=== PATIENT | male | born 1950 | race African-American/Black ===

== ENCOUNTER 2019-07-06 10:13 | Outpatient (CLI) | payer MEDICARE, SELFPAY ==
[2019-07-06 11:14] LABS: Blood Urea Nitrogen 11 mg/dL (9-20); Calcium 8.8 mg/dL (8.4-10.2); Carbon Dioxide 28 mmol/L (22-30); Chloride 104 mmol/L (98-107); Estimated Glomerular Filt Rate > 60; Glucose 93 mg/dL (75-110); Potassium 4.3 mmol/L (3.4-5.0); Sodium 141 mmol/L (137-145)
== END 2019-07-06 10:14 | disposition home or self-care (01) ==
PROVIDERS: PCP Internal Medicine; Visit Provider Internal Medicine
DX: I10 Essential (primary) hypertension (principal)
CPT/HCPCS: 36415; 80048

== ENCOUNTER 2019-11-15 08:42 | Outpatient (CLI) | payer MEDICARE, SELFPAY ==
--- NOTE | 2019-11-15 08:53 | ECHO_ITS ---
Patient Info Name: Wilton Contreras Age: 69 years : 1950 Gender: Male Ht: 71 in Wt: 270 lbs BSA: 2.52 m2 HR: 73 bpm BP: 128 / 85 mmHg Technical Quality: Good Exam Date: 11/15/2019 8:56 AM Exam Location: [facility] Patient Status: Outpatient Admit Date: 11/15/2019 Staff Ordering Physician: Good Rivera DO Economic Adviser: Fay Vega RDCS Attending Provider: Good Rivera DO Referring Physician: Miguel COOK; Exam Type: CA echo doppler color flow Study Info Indications I50.22 - Chronic systolic (congestive) heart failure Complete two-dimensional, color flow and Doppler transthoracic echocardiogram is performed. Summary 1. Left ventricular chamber dimension is severely enlarged. 2. Left ventricular systolic function is severely reduced, estimated at 20-25%. 3. The left ventricular diastolic function is normal. 4. E/e' 8 is not elevated. 5. Global longitudinal strain is abnormal at -8.8%. 6. Right ventricular systolic function is reduced based on TAPSE 1.3 cm. 7. Linear artifact in right ventricle suggestive of catheter(s), pacemaker lead(s), or ICD lead(s). 8. Left atrial chamber dimension is severely enlarged. 9. Linear artifact in the right atrium suggestive of catheter(s), pacemaker lead(s), or ICD lead(s). 10. Right atrial chamber dimension is severely enlarged. 11. There is mild to moderate mitral valve regurgitation. 12. There is mild to moderate tricuspid valve regurgitation. 13. No pulmonary hypertension, estimated pulmonary arterial systolic pressure is 37 mmHg. 14. Dilated inferior vena cava with >50% collapse upon inspiration consistent with elevated right atrial pressure, 10 mmHg. Left Ventricle E/e' 8 is not elevated. Global longitudinal strain is abnormal at -8.8%. Left ventricular chamber dimension is severely enlarged. Left ventricular systolic function is severely reduced, estimated at 20-25%. The left ventricular diastolic function is normal. Right Ventricle Right ventricular systolic function is reduced based on TAPSE 1.3 cm. Linear artifact in right ventricle suggestive of catheter(s), pacemaker lead(s), or ICD lead(s). Right ventricular chamber dimension is not well visualized. Left Atria Left atrial chamber dimension is severely enlarged. Right Atria Linear artifact in the right atrium suggestive of catheter(s), pacemaker lead(s), or ICD lead(s). Right atrial chamber dimension is severely enlarged. Aortic Valve The aortic valve is trileaflet. There is no aortic valve stenosis. There is no aortic valve regurgitation. Pulmonic Valve There is no pulmonic regurgitation. Mitral Valve There is no mitral valve stenosis. There is mild to moderate mitral valve regurgitation. Tricuspid Valve There is mild to moderate tricuspid valve regurgitation. No pulmonary hypertension, estimated pulmonary arterial systolic pressure is 37 mmHg. Pericardium/Pleural There is no pericardial effusion. Inferior Vena Cava Dilated inferior vena cava with >50% collapse upon inspiration consistent with elevated right atrial pressure, 10 mmHg. Aorta The aortic root size at the sinus of Valsalva is normal. Left Ventricular Outflow Tract Name Value Normal LVOT 2D LVOT Diameter
== END 2019-11-15 08:43 | disposition home or self-care (01) ==
PROVIDERS: PCP Internal Medicine; Visit Provider Internal Medicine Cardiovascular Disease
DX: I50.22 Chronic systolic (congestive) heart failure (principal); I36.1 Nonrheumatic tricuspid (valve) insufficiency; I34.0 Nonrheumatic mitral (valve) insufficiency
CPT/HCPCS: 93306

== ENCOUNTER 2020-01-04 08:41 | Outpatient (CLI) | payer MEDICARE, SELFPAY ==
[2020-01-04 09:25] LABS: Alanine Aminotransferase 20 U/L (4-50); Albumin Level 3.8 g/dL (3.5-5.1); Alkaline Phosphatase 126 U/L (38-126); Anion Gap 6 mmol/L (8-16); Aspartate Amino Transferase 34 U/L (17-59); Bilirubin,Total 1.7 mg/dL (0.2-1.3); Blood Urea Nitrogen 11 mg/dL (9-20); Calcium 8.5 mg/dL (8.4-10.2); Carbon Dioxide 26 mmol/L (22-30); Chloride 106 mmol/L (98-107); Cholesterol 105 mg/dL (0-200); Estimated Glomerular Filt Rate > 60; Glucose 100 mg/dL (75-110); HDL Direct 40 mg/dL; Potassium 4.3 mmol/L (3.4-5.0); Sodium 138 mmol/L (137-145); Triglycerides 48 mg/dL (<150)
[2020-01-04 09:36] LABS: LDL Cholesterol Direct 56 mg/dL
[2020-01-04 09:56] LABS: Prostate Specific Antigen 3.6 ng/mL (< OR = 4.0)
== END 2020-01-04 08:42 | disposition home or self-care (01) ==
LOC: ANHLAB 08:42
PROVIDERS: PCP Internal Medicine; Visit Provider Nurse Practitioner
DX: I50.22 Chronic systolic (congestive) heart failure (principal); Z12.5 Encounter for screening for malignant neoplasm of prostate
CPT/HCPCS: 36415; 80053; 80061; 84153; G0103

== ENCOUNTER 2020-07-07 12:43 | Outpatient (CLI) | payer MEDICARE, SELFPAY ==
[2020-07-07 13:36] LABS: Alanine Aminotransferase 25 U/L (4-50); Albumin Level 3.5 g/dL (3.5-5.1); Alkaline Phosphatase 70 U/L (38-126); Anion Gap 10 mmol/L (8-16); Aspartate Amino Transferase 48 U/L (17-59); Bilirubin,Total 5.5 mg/dL (0.2-1.3); Blood Urea Nitrogen 17 mg/dL (9-20); Carbon Dioxide 27 mmol/L (22-30); Chloride 108 mmol/L (98-107); Cholesterol 103 mg/dL (0-200); Estimated Glomerular Filt Rate > 60; Glucose 79 mg/dL (75-110); HDL Direct 22 mg/dL; Potassium 3.9 mmol/L (3.4-5.0); Sodium 145 mmol/L (137-145); Triglycerides 83 mg/dL (<150)
[2020-07-07 13:47] LABS: LDL Cholesterol Direct 70 mg/dL
== END 2020-07-07 12:44 | disposition home or self-care (01) ==
PROVIDERS: PCP Internal Medicine; Visit Provider Internal Medicine
DX: I50.22 Chronic systolic (congestive) heart failure (principal); I42.8 Other cardiomyopathies
CPT/HCPCS: 36415; 80053; 80061

== ENCOUNTER 2020-07-13 14:43 | Inpatient (IN) | payer MEDICARE, SELFPAY ==
[2020-07-13] VITALS (61 sets, daily range): BP systolic 91–147; BP diastolic 60–99; PULSE 66–119; RESP 0–20; TEMP 36.2; O2SAT 96–100; BMI 38.2
--- NOTE | ~2020-07-13 | US_ITS ---
EXAMINATION: US abdomen limited DATE: 07/14/2020 08:05 INDICATION: Elevated bilirubin TECHNIQUE: Multiple grayscale and Doppler ultrasound images of the abdomen were obtained. COMPARISON: CT, 07/14/2020 FINDINGS: Bowel gas obscures visualization of the pancreas. The visualized portions of the pancreas a re unremarkable. The liver is normal with normal echogenicity and echotexture. No surface nodularity. There is pulsatile flow in the main portal vein. Cholelithiasis is noted. The gallbladder wall thick ness is at the upper limits of normal, likely related to hepatic congestion. The normal common bile d uct measures 3 mm. The inferior vena cava measures up to 4.6 cm just inferior to the liver. IMPRESSION: 1. Findings consistent with congestive changes in the liver, possibly related to congestive heart elena lure. Reviewed, dictated and finalized at location A. ATTENDANT IMPRESSION: 1. Findings consistent with congestive changes in the liver, possibly related t o congestive heart failure.
--- NOTE | ~2020-07-13 | XR_ITS ---
EXAMINATION: XR chest 2V DATE: 07/13/2020 16:01 INDICATION: Asthma and hypertension presenting with shortness of breath post fall TECHNIQUE: frontal and lateral views of the chest were obtained. COMPARISON: Chest radiograph dated 01/29/2017 FINDINGS: Airspace opacity projecting over one of the posterior sulci on the lateral projection, unclear whethe r this is left-sided or right-sided. Remainder of the lungs are clear. No pulmonary edema or pneumoth orax. Small calcified nodules in the right upper lung zone consistent with old granulomatous disease. Cardiomegaly. Tortuous thoracic aorta. Cardiac pacemaker/AICD with distal tip projecting over the ri ght ventricle. Thoracic kyphosis with mild spondylosis. IMPRESSION: 1. Opacities posteriorly at one of the lung bases, unclear whether left or right, which could represe nt atelectasis and/or pneumonia. 2. Cardiomegaly. Reviewed, dictated and finalized at location A. ANESTHESIA MANAGER IMPRESSION: 1. Opacities posteriorly at one of the lung bases, unclear whether left or righ t, which could represent atelectasis and/or pneumonia. 2. Cardiomegaly.
--- NOTE | ~2020-07-13 | XR_ITS ---
EXAMINATION: XR UGI w small bowel DATE: 07/16/2020 10:24 INDICATION: Early satiety TECHNIQUE: The patient drank thick barium, gas-producing crystals, and thin barium. Conventional supi ne abdomen radiographs and fluoroscopy of the esophagus, stomach, and small bowel were performed. Flu oroscopy exposure time was 1.9 minutes. 13 fluoroscopic and seven conventional radiographic images ar e obtained. COMPARISON: None. FINDINGS: UPPER GASTROINTESTINAL SERIES: There is no mass or stricture of the esophagus. Esophageal motility is normal. There is no hiatal her mark. The stomach shows a normal folding pattern.] SMALL BOWEL SERIES: Transit time from the stomach to proximal colon was approximately 45 minutes. There is normal caliber and mucosal fold pattern throughout the small bowel. Terminal ileum is normal. No tethering or abn ormal mass effect observed upon the small bowel with real-time fluoroscopy. There are changes of bila teral total hip arthroplasties. IMPRESSION: 1. Unremarkable examination. Reviewed, dictated and finalized at location A. RSIFIED CROPS FARMER
--- NOTE | ~2020-07-13 | CT_ITS ---
EXAMINATION: CTA chest PE abdomen pel DATE: 07/14/2020 00:41 INDICATION: Elevated d-dimer. Elevated serum bilirubin. TECHNIQUE: Computed tomography angiography (CTA) of the chest, abdomen and pelvis was performed with 100 mL Omnipaque-350 intravenous contrast timed to evaluate the pulmonary arteries. Coronal maximum i ntensity projection 3D-reconstructions were created by the technologist. Automated exposure control a nd iterative reconstruction technique were employed. Exam dose: 2403.02 mGy-cm total exam DLP. COMPARISON: July 13, 2020 2 view chest FINDINGS: There is diagnostic contrast enhancement of the pulmonary arteries and no evidence of pulmo nary embolism. Left-sided pacemaker device with lead in right ventricle. Cardiomegaly. No pericardial effusion. There is reflux of contrast material into the inferior vena cava and hepatic veins indicating right h eart dysfunction. No thoracic aortic aneurysm. No hilar or mediastinal mass lesion or lymphadenopathy. There is mild right pleural effusion and right dependent lower lobe infiltrate and/or atelectasis. Mi nimal discoid atelectasis in the dependent left lower lobe. The lungs are otherwise clear of infiltra te or consolidation. There is edema of the chest and abdominal and pelvic mcgregor. There is minimal ascites. Diffuse hepatic steatosis. No hepatic, splenic, pancreatic, adrenal or renal space-occupying mass les ion is evident. Normal caliber of the abdominal aorta. No intraperitoneal or retroperitoneal or pelvic mass lesion or adenopathy or ascites is evident. There is considerable streak artifact in the pelvic area from bilateral hip replacements. This limits evaluation of urinary bladder and other pelvic structures. Diverticulosis of the colon; no CT evidence of diverticulitis. No bowel obstruction is evident. Multilevel degenerative disc disease of the lumbar spine with associated mild retrolisthesis at L1-2 and L3-4. There is grade 1 anterolisthesis at L4-5 and L5-S1 due to prominent degenerative change at the apophyseal joints. Diffuse osteopenia. IMPRESSION: Cardiomegaly, mild right pleural effusion, right heart failure, anasarca Mild dependent right lower lobe infiltrate and/atelectasis and minimal discoid atelectasis in the dep endent left lower lobe No evidence of pulmonary embolism Minimal ascites Hepatic steatosis Diverticulosis of the colon Degenerative changes of the thoracic and lumbar spine Bilateral hip replacements Reviewed, dictated and finalized at Location A. Reviewed, dictated and finalized at location B. MIC ETCHING PROCESSOR IMPRESSION: Cardiomegaly, mild right pleural effusion, right heart failure, an asarca Mild dependent right lower lobe infiltrate and/atelectasis and minimal discoid atelectasis in the dependent left lower lobe No evidence of pulmonary embolism Minimal ascites Hepatic steatosis Diverticulosis of the colon Degenerative changes of the thoracic and lumbar spine Bilateral hip replacements
--- NOTE | ~2020-07-13 | US_ITS ---
EXAMINATION: US venous doppler LE EXAM DATE: 07/14/2020 18:11 INDICATION: Bilateral leg edema. TECHNIQUE: Multiple grayscale, color flow and Doppler images of the lower extremity deep venous syste ms bilaterally were obtained and reviewed. Comparison is made to prior examination from 07/24/2007. FINDINGS: Some limitations, technologist noted that patient could not tolerate compression of mid to distal femoral veins, but color flow was confirmed bilaterally. Right side: The right common femoral, femoral and profunda veins demonstrate normal color flow, respi ratory variation, augmentation and compressibility. Compressibility, color flow confirmed within the right popliteal, posterior tibial, peroneal, and greater saphenous veins. Left side: The left common femoral, femoral and profunda veins demonstrate normal color flow, respira tory variation, augmentation and compressibility. Compressibility, color flow confirmed within the l eft popliteal, posterior tibial, peroneal, and greater saphenous veins. IMPRESSION: 1. No evidence of lower extremity deep venous thrombosis bilaterally. Reviewed, dictated and finalized at location A. RETE BUCKET LOADER
--- NOTE | ~2020-07-13 | CT_ITS ---
EXAMINATION: CT brain wo con DATE: 07/13/2020 15:52 INDICATION: Syncopal episode TECHNIQUE: Computed tomography (CT) of the head was performed without intravenous contrast. Sagittal and coronal reconstructions were performed. The mA was adjusted according to patient size. Iterative reconstruction technique was employed. The dose-length product was 605.33 mGy-cm. COMPARISON: None FINDINGS: Bandaging material overlying a small right frontal scalp hematoma with likely laceration. No calvaria l fracture. Small old infarct in the left cerebellar hemisphere. No acute intracranial hemorrhage, ac ray infarction or abnormal extra axial fluid collection. There is mild scattered white matter hypoatt enuation consistent with chronic small vessel ischemic disease. Symmetric prominence of the sulci con sistent with mild age-appropriate diffuse cerebral volume loss. Ventricles are normal and symmetric. No mass/mass effect. Intracranial calcified cerebral atherosclerosis is noted. The orbits, paranasal sinuses and mastoid air cells are normal. IMPRESSION: 1. No fracture or acute intracranial process. 2. Small old left cerebellar infarct. 3. Age-related changes including mild diffuse volume loss and mild scattered white matter hypoattenua tion consistent with chronic small vessel ischemic disease. Reviewed, dictated and finalized at location A. ROFIT MANAGER IMPRESSION: 1. No fracture or acute intracranial process. 2. Small old left cerebellar infarct. 3. Age-related changes including mild diffuse volume loss and mild scattered wh ite matter hypoattenuation consistent with chronic small vessel ischemic diseas e.
--- NOTE | ~2020-07-13 | CT_ITS ---
EXAMINATION: CT cervical spine wo con EXAM DATE: 07/13/2020 15:52 INDICATION: Syncope. Right-sided head injury. TECHNIQUE: Spiral CT of the cervical spine was performed without contrast. Axial images were reviewe d. Coronal and sagittal reformatted images were also reviewed. The dose-length product (DLP) for thi s examination was 475.23 mGy-cm. The exposure was tailored according to patient size (auto mA exposu re control), and iterative reconstruction (ASIR) was used as additional dose reduction technique. ere is no prior study for comparison. FINDINGS: There is no evidence of acute cervical fracture. The odontoid process is intact. Pre-dens space is normal. Prevertebral soft tissue is normal. There are no soft tissue abnormalities identi fied. There is no disc space widening or traumatic vertebral body subluxation suspected. There is s evere right neural foraminal stenosis at C5-6. Advanced arthropathy at some of the levels. A detaile d level by level evaluation of spondylosis can be added as addendum if requested. IMPRESSION: 1. No acute cervical fracture. 2. Cervical spondylosis. Reviewed, dictated and finalized at location A. T HEMMER
--- NOTE | 2020-07-13 14:51 | ECG_ITS ---
Measurements Intervals [place] Rate: 88 P: [place]: 0 QRS: 261 QRSD: 102 T: 95 QT: 377 QTc: 456 Interpretive Statements SINUS OR ECTOPIC ATRIAL RHYTHM VENTRICULAR COUPLETS AND ATRIAL AND VENTRICULAR PREMATURE COMPLEXES RIGHT AXIS DEVIATION INCOMPLETE RIGHT BUNDLE BRANCH BLOCK LOW QRS VOLTAGE- DIFFUSE LEADS INFERIOR INFARCT, AGE INDETERMINATE LATERAL INFARCT, AGE INDETERMINATE ABNORMAL ECG Electronically Signed On 07-14-2020 11:57:19 PHYSICAL METEOROLOGIST by Good Rivera D.O.
--- NOTE | 2020-07-13 15:07 | ED.SYNCOPE ---
HPI - Syncope General Chief Complaint: Syncope Stated Complaint: syncopal episode Source: patient Mode of arrival: EMS Limitations: no limitations History of Present Illness HPI narrative: A 70-year-old male comes into the emergency department today with complaints of a syncopal episode. Patient was reportedly going to his primary care doctor to get evaluated for some ongoing issues including weakness in his legs. Patient also notes that he has been having issues with eating. He states that he is suffering from very early satiety. Patient notes that he has the desire to eat but then he only takes a few bites and feels full and has no further desire to continue to eat. He denies any pain with eating or swallowing. Patient reportedly lost complete consciousness fell or hit his head. Bystanders noted that he was out for a few seconds. Patient is alert and oriented and able to provide accurate history at this time Related Data Home Medications Medication Instructions Recorded Confirmed bumetanide 1 mg PO DAILY 07/13/20 doxazosin mg 07/13/20 umeclidinium-vilanterol [Anoro INHALATION 07/13/20 Ellipta] Allergies Allergy/AdvReac Type Severity Reaction Status Date / Time lisinopril AdvReac Cough Verified 07/13/20 15:30 Review of Systems Review of Systems: Narrative: CONSTITUTIONAL: Denies fever, chills, or sweats. EYES: Denies visual changes, redness, or discharge. ENT: Denies rhinorrhea, congestion, sore throat, or otalgia. CARDIOVASCULAR: Denies chest pain, palpitations, or edema. RESPIRATORY: Denies cough or dyspnea. GASTROINTESTINAL: Denies abdominal pain, nausea, vomiting, or diarrhea. GENITOURINARY: Denies dysuria or hematuria. SKIN: Denies rash or itching. MUSCULOSKELETAL: Denies back pain, joint pain, or myalgia. NEUROLOGIC: Denies headache, numbness, dizziness, or weakness. PSYCHIATRIC: Denies anxiety or depression. Exam Narrative: Exam Narrative: GENERAL: Well-appearing, well-nourished, and in no acute distress. HEAD: Normocephalic, 4 cm laceration above the right eyebrow. EYES: PERRLA and EOMI. ENT: Nares clear, no rhinorrhea or epistaxis. Mucous membranes moist. NECK: Supple. Presents in c-collar, no tenderness to palpation along the C-spine CHEST: Clear to auscultation. No respiratory distress. No wheezes rales or rhonchi HEART: Regular rate and rhythm. No murmur heard. Normal peripheral pulses. ABDOMEN: Soft, nontender, nondistended, normal active bowel sounds. EXTREMITIES: Normal range of motion. 4+ pitting edema bilaterally, evidence of chronic venous stasis. SKIN: Warm, dry, no rash. NEURO: No focal deficits. Alert and oriented x3. PSYCH: Normal mood and affect. Course Reevaluation(s) Reevaluation #1: Patient reevaluated and provided care update. Laceration on his forehead repaired by me, see procedure note below. Patient resting comfortably with no further complaints at this time. Time: 17:05 Vital Signs Vital signs: Vital Signs Pulse Rate 97 07/13/20 15:01 Respiratory Rate 19 07/13/20 15:01 Temperature 36.2 C L 07/13/20 15:19 Pulse Rate 80 07/13/20 15:19 Respiratory Rate 18 07/13/20 15:19 Blood Pressure 122/78 07/13/20 15:19 Pulse Oximetry 100 07/13/20 15:19 Procedures Laceration Laceration 1: Site: face Side (If applicable): right Size (cm): 5 Description: linear Depth: involves muscle layer Local Anesthetic: lidocaine 1% and with epi Amount of anesthesia used (mL): 6 Pre-repair: wound explored and irrigated ====== Skin Level ====== Skin layer closed with: nylon Size (cm): 5-0 Number of sutures: 4 Technique: simple, interrupted ====== Subcutaneous Layer ====== Subcutaneous layer closed with: vicryl Size: 5-0 Number of sutures: 8 Technique: running ====== Muscle Layer ====== ====== Tendon Layer ====== MDM - Syncope MDM
[2020-07-13 15:19] LABS: Glucose Point of Care 79 (65-105)
[2020-07-13] MEDS: LIDO 1%/EPINEPHRINE 1:100,000 20 ML VIAL 10 ML INFILTRATE (16:20)
[2020-07-13 16:44] LABS: Basophils Absolute Auto 0.1 K/mm3 (0.0-0.1); Basophils Percent Auto 1.5 % (0.2-1.2); Eosinophils Absolute Auto 0.1 K/mm3 (0-0.3); Eosinophils Percent Auto 1.2 % (0-4.4); Hematocrit 48.9 % (42.0-52.0); Hemoglobin 16.5 g/dL (14.0-18.0); Immature Granulocyte Absolute 0.02 K/mm3 (0.00-0.031); Immature Granulocyte Percent A 0.5 % (0-0.5); Lymphocytes Absolute Auto 0.65 K/mm3 (0.9-3.2); Mean Corpuscular HGB Conc 33.7 g/dl (32-36); Mean Corpuscular Hemoglobin 31.1 pg (26-34); Mean Corpuscular Volume 92.1 fl (80-100); Monocytes Absolute Auto 0.3 K/mm3 (0.1-0.6); Monocytes Percent Auto 6.7 % (2.6-8.5); Neutrophils Percent Auto 74.1 % (45.5-73.1); Platelet Count Result 142 k/mm3 (150-375); Red Blood Count 5.31 M/mm3 (4.6-6.20); Red Cell Distribution Width 17.8 % (11.5-14.5); White Blood Count 4.1 K/mm3 (4.5-10.0)
[2020-07-13 16:55] LABS: INR 1.5; Prothrombin Time 19.1 Seconds (11.1-14.7)
[2020-07-13 17:20] LABS: Alanine Aminotransferase 42 U/L (4-50); Albumin Level 3.6 g/dL (3.5-5.1); Alkaline Phosphatase 65 U/L (38-126); Anion Gap 9 mmol/L (8-16); Aspartate Amino Transferase 92 U/L (17-59); Bilirubin,Total 5.4 mg/dL (0.2-1.3); Blood Urea Nitrogen 17 mg/dL (9-20); Calcium 9.1 mg/dL (8.4-10.2); Carbon Dioxide 27 mmol/L (22-30); Chloride 110 mmol/L (98-107); Estimated Glomerular Filt Rate > 60; Glucose 87 mg/dL (75-110); Potassium 3.6 mmol/L (3.4-5.0); Sodium 146 mmol/L (137-145)
[2020-07-13 17:34] LABS: NT Pro B Type Natriuretic Pept 7820 PG/ML (5-100); Troponin I 0.055 ng/mL (0.000-0.034)
[2020-07-13] MEDS: TETANUS,DIPHTHERIA,AC PERTUSSIS ADULT (0.5 ML) BOOSTRIX IM (17:34)
[2020-07-13] MEDS: ASPIRIN 81 MG CHEWABLE TABLET 324 MG PO (17:57)
--- NOTE | 2020-07-13 18:36 | PC.NURSE ---
patient's sister left for the day. will update her with room that patient is admitted to.
--- NOTE | 2020-07-13 19:42 | PC.NURSE ---
patient resting on stretcher. lights dimmed. call light in reach. on basketball player. waiting for bed assignment.
--- NOTE | 2020-07-13 21:01 | PC.NURSE ---
repeat trop drawn. patient now awake. repositioned in bed. ice water and juice given. warm blanket given. aware that we are just waiting for a bed. denies any other needs. has call light in reach.
--- NOTE | 2020-07-13 21:20 | PM.IMHP ---
H&P: HPI History of Present Illness Date/Time: 07/13/20 21:20 <Eva Lopez PA-C - Last Filed: 07/13/20 23:19> Chief Complaint: Syncope. 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 He made an appointment with his doctor today for evaluation of decreased appetite, early satiety, and weakness. He is not certain if he has lost any weight, however his and siblings believe he has indeed lost weight. In any regard, when he stood up to walk to the exam room he began to feel lightheaded and had a syncopal episode, which caused him to fall to the floor in which he sustained a right forehead laceration and swelling. In the emergency department he was markedly edematous, with further questioning he does admit to not taking his bumetanide for the last 2 weeks ?because I have not been eating or drinking very much.? Unfortunately his swelling is now up to the flanks. Currently he has no specific complaints and he denies headache, neck ache, chest pain, pleuritic pain, palpitations, shortness of breath, abdominal pain, nausea, and vomiting. He also denies dysphagia and concerns for aspiration. No history of venous thromboembolism or liver disease. <Eva Lopez PA-C - Last Filed: 07/13/20 23:19> Review of Systems Review of Systems: Narrative: Twelve systems were reviewed with pertinent positives and negatives as per HPI. He denies recent cold and flu symptoms. No sick contacts. No recent travel. He denies cough. No significant orthopnea. No known history of malignancy. He denies jaundice and pruritus. No diarrhea or constipation. He has not noticed a change in urine output. He is not always compliant with his CPAP. Except as documented, all other systems were reviewed and are negative. <Eva Lopez PA-C - Last Filed: 07/13/20 23:19> [facility] Past Medical History Medical History: Medical History (Updated 07/14/20 @ 16:52 by Santhosh Golden MD) Arthritis Asthma Benign prostate hyperplasia Hypertension Hypertension Mild reactive airways disease Non-ischemic cardiomyopathy Non-ischemic cardiomyopathy Status post ICD insertion. Obstructive sleep apnea on CPAP Obstructive sleep apnea on CPAP Osteoarthritis <Eva Lopez PA-C - Last Filed: 07/13/20 23:19> Surgical History Surgical History: Surgical History (Updated 07/14/20 @ 08:08 by Anne Marie Winters) History of bilateral hip replacements History of bilateral hip replacements History of hernia repair History of hernia repair History of implantable cardioverter-defibrillator (ICD) insertion <Eva Lopez PA-C - Last Filed: 07/13/20 23:19> Family History Family History: Family History (System 07/14/20 @ 08:08 by Anne Marie Winters) Sibling Acute myocardial infarction Congestive heart failure Hypertension Sibling Diabetes mellitus Sibling Family history of heart disease in male family member before age 55 Other Heart disease <Eva Lopez PA-C - Last Filed: 07/13/20 23:19> Social History Social History: Social History (System 07/14/20 @ 08:08 by Anne Marie Winters) Social History: The patient lives with his in [place]. Smoking packs per day: 1 Smoking cigarettes per day: 20.0 Years smoked: 5 Smoking pack-years: 5.00 Alcohol intake: current Drinks per week: 1 Substance use: never Spiritual care concerns: No <Eva Lopez PA-C - Last Filed: 07/13/20 23:19> Meds Home Medications and Allergies Home medications: Home Medications Medication I
[2020-07-13 21:54] LABS: Troponin I 0.066 ng/mL (0.000-0.034)
[2020-07-13 23:51] LABS: D Dimer 8.64 ug/mL (<0.48)
[2020-07-14] VITALS (16 sets, daily range): BP systolic 98–142; BP diastolic 60–86; PULSE 66–94; RESP 12–18; TEMP 36.2–36.9; O2SAT 96–100; BMI 38.4
[2020-07-14 00:18] LABS: Bilirubin Direct 1.2 mg/dL (0-0.3)
[2020-07-14 00:36] LABS: Troponin I 0.063 ng/mL (0.000-0.034)
[2020-07-14 05:10] LABS: Basophils Absolute Auto 0.1 K/mm3 (0.0-0.1); Basophils Percent Auto 1.1 % (0.2-1.2); Eosinophils Absolute Auto 0.1 K/mm3 (0-0.3); Eosinophils Percent Auto 1.3 % (0-4.4); Hematocrit 45.5 % (42.0-52.0); Hemoglobin 15.2 g/dL (14.0-18.0); Immature Granulocyte Absolute 0.01 K/mm3 (0.00-0.031); Immature Granulocyte Percent A 0.2 % (0-0.5); Immature Platelet Fraction Pct 2.6 % (0.9-11.2); Lymphocytes Percent Auto 19.2 % (18.3-44.2); Mean Corpuscular HGB Conc 33.4 g/dl (32-36); Mean Corpuscular Hemoglobin 30.8 pg (26-34); Mean Corpuscular Volume 92.1 fl (80-100); Mean Platelet Volume 10.8 fl (7.4-10.4); Monocytes Absolute Auto 0.5 K/mm3 (0.1-0.6); Monocytes Percent Auto 10.7 % (2.6-8.5); Neutrophils Absolute Auto 3.2 K/mm3 (1.3-6.7); Neutrophils Percent Auto 67.5 % (45.5-73.1); Platelet Count Result 119 k/mm3 (150-375); Red Blood Count 4.94 M/mm3 (4.6-6.20); Red Cell Distribution Width 17.3 % (11.5-14.5); White Blood Count 4.7 K/mm3 (4.5-10.0)
[2020-07-14 05:21] LABS: Alanine Aminotransferase 36 U/L (4-50); Albumin Level 2.9 g/dL (3.5-5.1); Alkaline Phosphatase 47 U/L (38-126); Anion Gap 10 mmol/L (8-16); Aspartate Amino Transferase 68 U/L (17-59); Bilirubin Direct 1.3 mg/dL (0-0.3); Bilirubin,Total 5.3 mg/dL (0.2-1.3); Blood Urea Nitrogen 16 mg/dL (9-20); Calcium 8.3 mg/dL (8.4-10.2); Carbon Dioxide 26 mmol/L (22-30); Chloride 108 mmol/L (98-107); Estimated CRCL calculation 73 ml/min; Estimated Glomerular Filt Rate > 60; Glucose 80 mg/dL (75-110); Magnesium 1.7 mg/dL (1.6-2.3); Potassium 3.8 mmol/L (3.4-5.0); Sodium 144 mmol/L (137-145)
--- NOTE | 2020-07-14 08:01 | PC.NURSE ---
Bernardo called and page sent out to have rep interrogate pacer.
--- NOTE | 2020-07-14 08:03 | ECG_ITS ---
Measurements Intervals [place] Rate: 93 P: 50 [place]: 222 QRS: 256 QRSD: 101 T: 82 QT: 377 QTc: 470 Interpretive Statements SINUS RHYTHM ATRIAL PREMATURE COMPLEX BORDERLINE AV CONDUCTION DELAY LOW QRS VOLTAGE IN LIMB LEADS INFERIOR INFARCT, AGE INDETERMINATE LATERAL INFARCT, AGE INDETERMINATE BORDERLINE T WAVE ABNORMALITY- HIGH LATERAL LEADS ABNORMAL ECG Electronically Signed On 07-14-2020 12:00:34 COTTON SEED CULLER by Good Rivera D.O.
--- NOTE | 2020-07-14 08:03 | PM.CNCAR ---
Assessment and Plan Assessment and plan (1) NICM (nonischemic cardiomyopathy): Code(s): I42.8 - Other cardiomyopathies Status: Acute Assessment and Plan: Continue Bumentanide for edema. (2) LAURIE on CPAP: Code(s): G47.33 - Obstructive sleep apnea (adult) (pediatric); Z99.89 - Dependence on other enabling machines and devices Status: Acute (3) ICD (implantable cardioverter-defibrillator) in place: Code(s): Z95.810 - Presence of automatic (implantable) cardiac defibrillator Status: Acute (4) Obesity (BMI 35.0-39.9 without comorbidity): Code(s): E66.9 - Obesity, unspecified Status: Acute (5) Syncope: Code(s): R55 - Syncope and collapse Status: Acute Assessment and Plan: Differential including arrhythmia/ICD malfunction, volume depletion or hypoglycemia from poor PO intake, neurologic. Will have Chang ([employer]) ICD interrogated today. Check EKG. (6) Hyperbilirubinemia: Code(s): E80.6 - Other disorders of bilirubin metabolism Status: Acute (7) Elevated troponin: Code(s): R77.8 - Other specified abnormalities of plasma proteins Status: Acute Assessment and Plan: Slight and flat, he has known non-ICM. This could be due to chronic LV systolic dysfunction. History of Present Illness History of Present Illness Consult date/time: 07/14/20 08:03 Reason for consult: Syncope. Patient is a 70 yr old man who is my [facility] cardiology patient presents to hospital after syncopal episode. He has a history of Non-ICM (intolerant of Toprol and Coreg due to fatigue/weakness, Losartan due to itching/edema) with [employer] Gus ICD to prevent sudden cardiac arrest, hypertension, LAURIE on CPAP, obesity. States he was at his PCP, Dr. Grewal's office and after getting weighed he was walking to a room when he suddenly felt dizziness and immediately found himself on the floor. He received stitches above his right eye in ED and cannot open his right eye. Admits to SAL[place] walking around his house. He has early satiety and can only eat a few bites. He has not taken his Bumetanide but once or twice in last 2 weeks since he was not eating or drinking much. Has edema of legs. Denies chest pain, sob, palpitations. T. Bili elevated at 5.3 with Direct 1.3. Trop .066 then to .063. Albumin 2.9. Mag 1.7. INR 1.5. CT brain did not show anything acute. Orthostatics negative. Cardiovascular Procedures Donor Relations Associate:: Cath (Dr. Smith: normal coronaries; severe global systolic dysfunction with EF 25%.) - 11/18/2016 Echo/MUGA:: 11/15/19 Echo: EF 20-25%, severe LVE, RV dysfunction based on TAPSE 1.3 cm, severe biatrial enlargement, mild-mod MR/TR. 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 Gus ICD single lead placement with perforation. Went to [facility] and had revision on 02/03/[address] with [address] surgery backup.) - 01/23/2017 Stress Tests:: Sleep Study (LAURIE.) - 05/23/2015 MPI (Lexiscan myoview: Large chronic mod severeity infarct involving significant portions of LAD and LCx with new mild ischemia at apex extending more basilar along lateral and inferolateral mcgregor; new mod severity infarct along inferior wall.) - 10/31/2016 [place] MPI (Partial reversibility of lateral and septal mcgregor. Fixed defects suggestive of anterior and apical infarct. EF 30%.) - 09/04/2007 Reason For Visit: Syncope, Elevated troponin Review of Systems Con
[2020-07-14] MEDS: BUMETANIDE 1 MG TABLET PO (09:38)
[2020-07-14 14:07] LABS: SARS-CoV-2 RNA PCR Negative
--- NOTE | 2020-07-14 16:26 | PM.IMPN ---
Progress Note: A&P Assessment and Plan (1) Syncope: Code(s): R55 - Syncope and collapse Status: Acute Assessment and Plan: Patient had a syncopal episode upon standing. Possibly orthostasis from oral intake. His orthostatic vital signs were normal in the ED however. CTA was negative for PE. Consider dysrhythmia as well. ICD to be interrogated. Continue telemetry. (2) Forehead laceration: Qualifiers: Encounter type: initial encounter Qualified Code(s): S01.81XA - Laceration without foreign body of other part of head, initial encounter Code(s): S01.81XA - Laceration without foreign body of other part of head, initial encounter Status: Acute Assessment and Plan: Forehead laceration has been sutured. Will use ice to help with swelling. Continue to monitor for eye symptoms. (3) Non-ischemic cardiomyopathy: Code(s): I42.8 - Other cardiomyopathies Status: Inactive Assessment and Plan: Echocardiogram in October of 2019 showing EF of 20-25% with normal diastolic function. He had [id number] MR and TR. Patient is only on Bumex. Unclear on why he is not on Toprol and ARB. He is allergic to ANGEL inhibitors. No significant findings of pulmonary edema on the CTA. BNP however is 7800. Patient is back on his oral Bumex. Will change to IV Bumex. [place] appropriate medical management as vital signs tolerate. Daily weights. Hardly diet. Cardiology consult. (4) Hypertension: Code(s): I10 - Essential (primary) hypertension Status: Acute Assessment and Plan: Patient's blood pressure was reviewed on 07/14 Blood pressure remains well controlled. Will continue current medications. Continue to monitor (5) Obstructive sleep apnea on CPAP: Code(s): G47.33 - Obstructive sleep apnea (adult) (pediatric); Z99.89 - Dependence on other enabling machines and devices Status: Inactive Assessment and Plan: He may have underlying right sided failure as noted by some of the CT scan findings by echocardiogram in October. Auto titration of NIV. Continue to follow. (6) Hyperbilirubinemia: Code(s): E80.6 - Other disorders of bilirubin metabolism Status: Acute Assessment and Plan: Patient with mixed picture with hyperbilirubinemia. Abdominal ultrasound shows findings consistent with congestive changes in the liver probably related to his cardiomyopathy. Noted to have hepatic steatosis and minimal ascites but no other findings by CT scan. Continue to monitor. This may improve as his oral intake improves and his fluid status improves. (7) Elevated troponin: Code(s): R77.8 - Other specified abnormalities of plasma proteins Status: Acute Assessment and Plan: Troponins are elevated to 0.066 but flat. Most likely type 2 [place] related to above. (8) Early satiety: Code(s): R68.81 - Early satiety Status: Acute Assessment and Plan: Eating better today. Nothing concerning by CT scan. Will see how he eats today and tomorrow. Consider UGI series. Add pepcid. (9) DVT prophylaxis: Code(s): Z29.9 - Encounter for prophylactic measures, unspecified Status: Acute Assessment and Plan: Lovenox; increase activity Subjective Date/time seen: 07/14/20 16:26 Interval history: Date of service 07/14/20 70yo male with NICMP with ICD, LAURIE and HTN here for syncope and weakness. He also has not been eating much due to early satiety and has been off hisw Bumex x 2 weeks. Eating better today. No n/v. Denies having eraly satiety now. No CP or SOB. No diplopia but has pain around the right eyebrow sutures. Exam Narrative: Exam Narrative: AF 98.5 116/77 94 12 98% ra Gen - NARD HEENT - sutured laceration along the right eye brow with right periorbital edema and bruising. EOMI Chest - inspiratory crackles mid and lower lung randall. nml RR CV - irregul
[2020-07-14] MEDS: AMIODARONE HCL 200 MG TABLET PO (17:55)
[2020-07-14] MEDS: ENOXAPARIN 40 MG/0.4 ML SYRINGE SUB-Q (17:55)
[2020-07-14] MEDS: BUMETANIDE INJ 1 MG/4 ML VIAL IV PUSH (17:55)
--- NOTE | 2020-07-14 20:00 | PC.NURSE ---
pt refused ice pack
[2020-07-14] MEDS: FAMOTIDINE 20 MG TABLET PO (21:27)
[2020-07-14] MEDS: METOPROLOL TARTRATE 6.25 MG TABLET PO (21:28)
--- NOTE | 2020-07-14 22:30 | PC.NURSE ---
This patient, Wilton Contreras, was admitted to IMU Room 207-01. Patient oriented to hospital policies and general routines including ID bracelet, bed and alarms, visiting hours, pain management, procedures, bathroom and other care routines, personal items, smoking policy, room service/diet, and visiting hours. Patient encouraged to report perceived risks to care and to ask questions if they do not understand what they are told or what they should do.
[2020-07-15] VITALS (21 sets, daily range): BP systolic 98–130; BP diastolic 59–87; PULSE 60–86; RESP 16–20; TEMP 36.1–37.1; O2SAT 96–100
[2020-07-15 05:34] LABS: Basophils Percent Auto 1.1 % (0.2-1.2); Eosinophils Absolute Auto 0.1 K/mm3 (0-0.3); Eosinophils Percent Auto 3.2 % (0-4.4); Hemoglobin 14.1 g/dL (14.0-18.0); Immature Granulocyte Absolute 0.01 K/mm3 (0.00-0.031); Immature Granulocyte Percent A 0.3 % (0-0.5); Lymphocytes Absolute Auto 0.85 K/mm3 (0.9-3.2); Lymphocytes Percent Auto 22.8 % (18.3-44.2); Mean Corpuscular HGB Conc 33.6 g/dl (32-36); Mean Corpuscular Hemoglobin 30.9 pg (26-34); Mean Corpuscular Volume 91.9 fl (80-100); Mean Platelet Volume 11.1 fl (7.4-10.4); Monocytes Absolute Auto 0.4 K/mm3 (0.1-0.6); Monocytes Percent Auto 11.8 % (2.6-8.5); Neutrophils Absolute Auto 2.3 K/mm3 (1.3-6.7); Neutrophils Percent Auto 60.8 % (45.5-73.1); Platelet Count Result 117 k/mm3 (150-375); Red Blood Count 4.57 M/mm3 (4.6-6.20); White Blood Count 3.7 K/mm3 (4.5-10.0)
[2020-07-15 06:00] LABS: Alanine Aminotransferase 31 U/L (4-50); Albumin Level 2.7 g/dL (3.5-5.1); Alkaline Phosphatase 48 U/L (38-126); Anion Gap 6 mmol/L (8-16); Aspartate Amino Transferase 51 U/L (17-59); Bilirubin,Total 4.7 mg/dL (0.2-1.3); Blood Urea Nitrogen 17 mg/dL (9-20); Calcium 8.5 mg/dL (8.4-10.2); Carbon Dioxide 28 mmol/L (22-30); Chloride 109 mmol/L (98-107); Estimated CRCL calculation 68 ml/min; Estimated Glomerular Filt Rate > 60; Glucose 87 mg/dL (75-110); Magnesium 1.5 mg/dL (1.6-2.3); Phosphorus 3.3 mg/dL (2.5-4.5); Potassium 3.4 mmol/L (3.4-5.0); Sodium 143 mmol/L (137-145)
--- NOTE | 2020-07-15 08:00 | ECG_ITS ---
Measurements Intervals [place] Rate: 70 P: 70 TX: 196 QRS: 263 QRSD: 104 T: 90 QT: 436 QTc: 473 Interpretive Statements SINUS RHYTHM FREQUENT VENTRICULAR PREMATURE COMPLEXES RIGHT AXIS DEVIATION LOW QRS VOLTAGE IN LIMB LEADS INFERIOR INFARCT, AGE INDETERMINATE LATERAL INFARCT, AGE INDETERMINATE BORDERLINE T WAVE ABNORMALITY- ANT/HIGH LAT LEADS ABNORMAL ECG Electronically Signed On 07-15-2020 9:01:21 SPORTS PHOTOGRAPHER by Good Rivera D.O.
[2020-07-15] MEDS: AMIODARONE HCL 200 MG TABLET PO ×2 (08:22→16:41)
[2020-07-15] MEDS: FAMOTIDINE 20 MG TABLET PO ×2 (08:23→20:58)
[2020-07-15] MEDS: METOPROLOL TARTRATE 6.25 MG TABLET PO ×2 (08:23→20:58)
[2020-07-15] MEDS: BUMETANIDE INJ 1 MG/4 ML VIAL IV PUSH ×2 (08:23→16:42)
[2020-07-15] MEDS: ENOXAPARIN 40 MG/0.4 ML SYRINGE SUB-Q (08:25)
--- NOTE | 2020-07-15 09:09 | PM.PNCARD ---
Progress Note: A&P Assessment and Plan (1) NICM (nonischemic cardiomyopathy): Code(s): I42.8 - Other cardiomyopathies Status: Acute Assessment and Plan: Continue Bumentanide for edema. Low dose Metoprolol started but he is intolerant of Metoprolol and Coreg in the past and has discontinued them on his own. His BP runs low normal and will be difficult to start ARB and that is why he is not on it. (2) LAURIE on CPAP: Code(s): G47.33 - Obstructive sleep apnea (adult) (pediatric); Z99.89 - Dependence on other enabling machines and devices Status: Acute (3) ICD (implantable cardioverter-defibrillator) in place: Code(s): Z95.810 - Presence of automatic (implantable) cardiac defibrillator Status: Acute (4) Obesity (BMI 35.0-39.9 without comorbidity): Code(s): E66.9 - Obesity, unspecified Status: Acute (5) Syncope: Code(s): R55 - Syncope and collapse Status: Acute Assessment and Plan: Due to ventricular fibrillation. (6) Hyperbilirubinemia: Code(s): E80.6 - Other disorders of bilirubin metabolism Status: Acute (7) Elevated troponin: Code(s): R77.8 - Other specified abnormalities of plasma proteins Status: Acute Assessment and Plan: Slight and flat, he has known non-ICM. This could be due to chronic LV systolic dysfunction and ICD shock. (8) Ventricular fibrillation: Code(s): I49.01 - Ventricular fibrillation Status: Acute Assessment and Plan: Chang ([employer]) rep ICD interrogated on 07/14/20 showing 2 episodes of ventricular fibrillation on 07/13/20 at 14:26 (lasted 32 seconds and treated with ATP) and at 15:07 (lasted 21 seconds and treated with ATP and shock). He is at risk for sudden cardiac arrest due to cardiomyopathy, hypomagnesemia. October 2016 left heart cath showed normal coronaries. Start Amiodarone 200 mg BID to prevent recurrence. He was started on low dose Metoprolol also, however, in the past he would discontinue Metoprolol or Coreg due to intolerance from malaise or fatigue. Start Mag-Ox 400 mg BID for Mag 1.5. Check EKG to measure QT interval. Subjective Date/time seen: 07/15/20 09:09 Denies chest pain or sob. Exam Const: General: cooperative, healthy appearing and comfortable Nutritional Appearance: obese HENMT: Head: laceration Other: Laceration with stitches above his right eye and edema/bruising of right eye, and cannot open his right eye. Resp: Auscultation: clear to auscultation bilaterally, no crackles, no rales, no rhonchi and no wheezes Cardio: Jugular venous distension: no JVD Rate: regular rate Rhythm: regular rhythm Heart sounds: no murmurs Peripheral pulses: dorsalis pedis present GI: GI Palp: No abdominal tenderness and Yes Soft to palpation Neuro: General: oriented to person, oriented to place and oriented to time Extrem: Right lower extremity: edema Left lower extremity: edema Other: Edema up to his thighs Objective Data Vital Signs Vital Signs: Vital Signs - 24 hr 07/14/20 10:00 07/14/20 12:00 07/14/20 14:00 Temperature 98.5 F Pulse Rate 82 83 94 Respiratory Rate 12 Blood Pressure 116/77 Pulse Oximetry 98 07/14/20 16:00 07/14/20 17:00 07/14/20 17:55 Temperature 97.2 F L Pulse Rate 89 84 Respiratory Rate 12 Blood Pressure 110/80 127/86 Pulse Oximetry 100 07/14/20 18:00 07/14/20 20:00 07/14/20 21:28 Temperature 97.7 F Pulse Rate 82 90 80 Respiratory Rate 16 Blood Pressure 107/60 Pulse Oximetry 100 07/14/20 22:00 07/15/20 00:00 07/15/20 02:00 Temperature 98.8 F Pulse Rate 66 71 66 Respiratory Rate 20 Blood Pressure 98/69 L Pulse Oximetry 99 07/15/20 04:00 07/15/20 05:45 07/15/20 08:00 Temperature 97.4 F L 97.1 F L Pulse Rate 66 60 68 Respiratory Rate 20 16 Blood Pressure 98/59 L 127/70 Pulse Oximetry 96 100 07/15/20 08:22 07/15/20 08:23 Temperature Pulse Rate 70 74 Respiratory
[2020-07-15] MEDS: MAGNESIUM OXIDE 400 MG TABLET PO ×2 (10:20→16:43)
[2020-07-15] MEDS: POTASSIUM CHLORIDE 20 MEQ TABLET 40 MEQ PO (14:11)
[2020-07-15] MEDS: MAGNESIUM SULF 2 GM/WATER 50ML 2 GM/50 ML BAG IVPB (14:12)
[2020-07-15] MEDS: FLUTICASONE PROPIONATE 0.05% NA SPR 16 GM BTL (*BKC) 2 SPRAY NASAL (14:12)
[2020-07-15 16:55] LABS: Add Urine Microscopic? YES; Appearance Urine Cloudy (Clear); Bilirubin Urine Negative (Negative); Blood Urine 3+ (Negative); Color Urine Red (Yellow); Glucose Urine UA Negative (Negative); Ketones Urine Negative (Negative); Leukocyte Esterase Ur Negative LEU/UL (Negative); Nitrate Urine Negative (Negative); Protein Urine 2+ mg/dL (Negative); RBC Urine >75 /hpf (0-2); Urobilinogen Urine Negative mg/dL (<2.0)
--- NOTE | 2020-07-15 17:29 | PM.IMPN ---
Progress Note: A&P Assessment and Plan (1) Syncope: Code(s): R55 - Syncope and collapse Status: Acute Assessment and Plan: Patient had a syncopal episode upon standing. CTA was negative for PE. ICD interrogation showing 2 episodes of VFib on 07/13/20 at 14:26 (lasted 32 seconds and treated with ATP) and at 15:07 (lasted 21 seconds and treated with ATP and shock). He was started on Amiodarone to prevent recurrence. (2) Ventricular fibrillation: Code(s): I49.01 - Ventricular fibrillation Status: Acute Assessment and Plan: As above. ICD interrogation showing 2 episodes of VFib, one that required 1 shock. As above. (3) Forehead laceration: Qualifiers: Encounter type: initial encounter Qualified Code(s): S01.81XA - Laceration without foreign body of other part of head, initial encounter Code(s): S01.81XA - Laceration without foreign body of other part of head, initial encounter Status: Acute Assessment and Plan: Forehead laceration has been sutured. Will use ice to help with swelling. Continue to monitor for eye symptoms. (4) Hematuria: Code(s): R31.9 - Hematuria, unspecified Status: Acute Assessment and Plan: Patient strained and had billy heamturia. He had a bladder scan but only showed 150mL. Patient states he has voided since and urine clear now. UA noted and this did not reflex to culture. He was encouraged not to strain (5) Non-ischemic cardiomyopathy: Code(s): I42.8 - Other cardiomyopathies Status: Inactive Assessment and Plan: Echocardiogram in October of 2019 showing EF of 20-25% with normal diastolic function. He had idyf-km-cqhyibuo MR and TR. Patient is only on Bumex. He is intolerant to Toprol and ARB. He is allergic to ANGEL inhibitors. No significant findings of pulmonary edema on the CTA. BNP however is 7800. Patient is on IV Bumex. Lopressor added at low dose and appers to be toelrting. Sarita appropriate medical management as vital signs tolerate. Daily weights. Heart healthy diet. Cardiology following and appreciate their input (6) Hypertension: Code(s): I10 - Essential (primary) hypertension Status: Acute Assessment and Plan: Patient's blood pressure was reviewed on 02/20 Blood pressure remains well controlled. Will continue current medications. Continue to monitor (7) Obstructive sleep apnea on CPAP: Code(s): G47.33 - Obstructive sleep apnea (adult) (pediatric); Z99.89 - Dependence on other enabling machines and devices Status: Inactive Assessment and Plan: He may have underlying right sided failure as noted by some of the CT scan findings and by echocardiogram in October. Auto titration of NIV. Continue to follow. (8) Hyperbilirubinemia: Code(s): E80.6 - Other disorders of bilirubin metabolism Status: Acute Assessment and Plan: Patient with mixed picture with hyperbilirubinemia. Abdominal ultrasound shows findings consistent with congestive changes in the liver probably related to his cardiomyopathy. Noted to have hepatic steatosis and minimal ascites but no other findings by CT scan. Continue to monitor. This is improving as his oral intake improves and his fluid status improves. (9) Elevated troponin: Code(s): R77.8 - Other specified abnormalities of plasma proteins Status: Acute Assessment and Plan: Troponins are elevated to 0.066 but flat. Most likely type II CT related to above. (10) Early satiety: Code(s): R68.81 - Early satiety Status: Acute Assessment and Plan: Eating better now at 100%. Nothing concerning by CT scan. John check UGI series given that the 100% can be ensure chake only. Continue pepcid. (11) DVT prophylaxis: Code(s): Z29.9 - Encounter for prophylactic measures, unspecified Status: Acute Assessment and Plan: Bradly
[2020-07-16] VITALS (22 sets, daily range): BP systolic 103–147; BP diastolic 67–99; PULSE 53–97; RESP 15–20; TEMP 36.1–36.6; O2SAT 97–100
[2020-07-16 05:28] LABS: Albumin Level 2.6 g/dL (3.5-5.1); Anion Gap 3 mmol/L (8-16); Bilirubin,Total 4.3 mg/dL (0.2-1.3); Blood Urea Nitrogen 17 mg/dL (9-20); Calcium 8.4 mg/dL (8.4-10.2); Carbon Dioxide 30 mmol/L (22-30); Chloride 109 mmol/L (98-107); Estimated CRCL calculation 70 ml/min; Estimated Glomerular Filt Rate > 60; Glucose 95 mg/dL (75-110); Magnesium 1.6 mg/dL (1.6-2.3); Phosphorus 3.2 mg/dL (2.5-4.5); Potassium 3.3 mmol/L (3.4-5.0); Sodium 142 mmol/L (137-145)
--- NOTE | 2020-07-16 09:24 | ECG_ITS ---
Measurements Intervals [place] Rate: 58 P: HI: 0 QRS: 269 QRSD: 92 T: 88 QT: 416 QTc: 409 Interpretive Statements SINUS RHYTHM ATRIAL AND FREQUENT VENTRICULAR PREMATURE COMPLEXES LOW QRS VOLTAGE IN LIMB LEADS POOR R WAVE PROGRESSION, CONSIDER ANTEROLATERAL INFARCT INFERIOR INFARCT, AGE INDETERMINATE BASELINE ARTIFACT- I, III, AVR, AVL, AVF, V1-V3 ABNORMAL ECG Electronically Signed On 07-16-2020 15:25:36 COMMERCIAL LOAN ANALYST by Good Rivera D.O.
--- NOTE | 2020-07-16 10:03 | PM.PNCARD ---
Progress Note: A&P Assessment and Plan (1) NICM (nonischemic cardiomyopathy): Code(s): I42.8 - Other cardiomyopathies Status: Acute Assessment and Plan: Continue Bumentanide for edema. Low dose Metoprolol started but he is intolerant of Metoprolol and Coreg in the past and has discontinued them on his own. Intolerant of Carloz inhibitors. His BP runs low normal and will be difficult to start ARB and that is why he is not on it. (2) LAURIE on CPAP: Code(s): G47.33 - Obstructive sleep apnea (adult) (pediatric); Z99.89 - Dependence on other enabling machines and devices Status: Acute (3) ICD (implantable cardioverter-defibrillator) in place: Code(s): Z95.810 - Presence of automatic (implantable) cardiac defibrillator Status: Acute (4) Obesity (BMI 35.0-39.9 without comorbidity): Code(s): E66.9 - Obesity, unspecified Status: Acute (5) Syncope: Code(s): R55 - Syncope and collapse Status: Acute Assessment and Plan: Due to ventricular fibrillation. (6) Hyperbilirubinemia: Code(s): E80.6 - Other disorders of bilirubin metabolism Status: Acute (7) Elevated troponin: Code(s): R77.8 - Other specified abnormalities of plasma proteins Status: Acute Assessment and Plan: Slight and flat, he has known non-ICM. This could be due to chronic LV systolic dysfunction and ICD shock. (8) Ventricular fibrillation: Code(s): I49.01 - Ventricular fibrillation Status: Acute Assessment and Plan: Chang ([employer]) rep ICD interrogated on 07/14/20 showing 2 episodes of ventricular fibrillation on 07/13/20 at 14:26 (lasted 32 seconds and treated with ATP) and at 15:07 (lasted 21 seconds and treated with ATP and shock). He is at risk for sudden cardiac arrest due to cardiomyopathy, hypomagnesemia. October 2016 left heart cath showed normal coronaries. Started Amiodarone 200 mg BID to prevent recurrence. He was started on low dose Metoprolol also, however, in the past he would discontinue Metoprolol or Coreg due to intolerance from malaise or fatigue. Start Mag-Ox 400 mg BID for Mag 1.5. Agree with Mag Carter. Replete potassium. Check EKG to measure QT interval. Subjective Date/time seen: 07/16/20 10:03 Saw patient in xray room. Denies chest pain or sob. Exam Const: General: cooperative, healthy appearing and comfortable Nutritional Appearance: obese HENMT: Head: laceration Other: Laceration with stitches above his right eye and edema/bruising of right eye, and cannot open his right eye. Resp: Auscultation: clear to auscultation bilaterally, no crackles, no rales, no rhonchi and no wheezes Cardio: Jugular venous distension: no JVD Rate: regular rate Rhythm: regular rhythm Heart sounds: no murmurs Peripheral pulses: dorsalis pedis present GI: GI Palp: No abdominal tenderness and Yes Soft to palpation Neuro: General: oriented to person, oriented to place and oriented to time Extrem: Right lower extremity: edema Left lower extremity: edema Other: Edema up to his thighs Objective Data Vital Signs Vital Signs: Vital Signs - 24 hr 07/15/20 12:00 07/15/20 12:23 07/15/20 12:24 Temperature 97.3 F L 97.3 F L Pulse Rate 78 66 Respiratory Rate 18 18 Blood Pressure 110/81 110/81 130/83 Pulse Oximetry 100 100 07/15/20 14:00 07/15/20 16:00 07/15/20 16:41 Temperature 97.5 F L Pulse Rate 69 71 73 Respiratory Rate 18 Blood Pressure 125/87 Pulse Oximetry 100 07/15/20 18:00 07/15/20 20:00 07/15/20 20:58 Temperature 97 F L Pulse Rate 65 81 86 Respiratory Rate 20 Blood Pressure 116/72 Pulse Oximetry 98 07/15/20 22:00 07/15/20 22:30 07/15/20 23:34 Temperature 97.8 F Pulse Rate 73 73 65 Respiratory Rate 20 Blood Pressure 108/74 Pulse Oximetry 98 98 07/16/20 00:00 07/16/20 02:00 07/16/20 04:00 Temperature 97 F L Pulse Rate 60 53 L 71 Respiratory Rate 20 Blood Pressure 115/76
[2020-07-16] MEDS: POTASSIUM CHLORIDE 20 MEQ TABLET 40 MEQ PO (10:51)
[2020-07-16] MEDS: MAGNESIUM OXIDE 400 MG TABLET PO ×2 (10:52→17:54)
[2020-07-16] MEDS: FLUTICASONE PROPIONATE 0.05% NA SPR 16 GM BTL (*BKC) 2 SPRAY NASAL (10:52)
[2020-07-16] MEDS: METOPROLOL TARTRATE 6.25 MG TABLET PO ×2 (10:52→20:34)
[2020-07-16] MEDS: FAMOTIDINE 20 MG TABLET PO ×2 (10:52→20:34)
[2020-07-16] MEDS: BUMETANIDE INJ 1 MG/4 ML VIAL IV PUSH ×2 (10:53→17:53)
[2020-07-16] MEDS: AMIODARONE HCL 200 MG TABLET PO ×2 (10:53→17:53)
[2020-07-16] MEDS: EUCERIN CREAM 120 GM JAR 1 APPLIC TOPICAL (10:53)
[2020-07-16] MEDS: ENOXAPARIN 40 MG/0.4 ML SYRINGE SUB-Q (10:53)
[2020-07-16] MEDS: MAGNESIUM SULF 2 GM/WATER 50ML 2 GM/50 ML BAG IVPB (11:02)
--- NOTE | 2020-07-16 14:52 | PM.IMPN ---
Progress Note: A&P Assessment and Plan (1) Ventricular fibrillation: Code(s): I49.01 - Ventricular fibrillation Status: Acute Assessment and Plan: Patient had a syncopal episode upon standing. CTA was negative for PE. ICD interrogation showing 2 episodes of VFib on 07/13/20 at 14:26 (lasted 32 seconds and treated with ATP) and at 15:07 (lasted 21 seconds and treated with ATP and shock). He was started on Amiodarone to prevent recurrence. (2) Syncope: Code(s): R55 - Syncope and collapse Status: Acute Assessment and Plan: As above. Syncope related to 2 episodes of VFib. (3) Forehead laceration: Qualifiers: Encounter type: initial encounter Qualified Code(s): S01.81XA - Laceration without foreign body of other part of head, initial encounter Code(s): S01.81XA - Laceration without foreign body of other part of head, initial encounter Status: Acute Assessment and Plan: Forehead laceration has been sutured. Continue to monitor for eye symptoms. (4) Hematuria: Code(s): R31.9 - Hematuria, unspecified Status: Acute Assessment and Plan: Patient strained and had billy heamturia. He had a bladder scan but only showed 150mL. Patient states he has voided since and urine clear now. UA noted and this did not reflex to culture. He was encouraged not to strain (5) Non-ischemic cardiomyopathy: Code(s): I42.8 - Other cardiomyopathies Status: Inactive Assessment and Plan: Echocardiogram in October of 2019 showing EF of 20-25% with normal diastolic function. He had [id number] MR and TR. Patient is only on Bumex. He is intolerant to Toprol and ARB. He is allergic to ANGEL inhibitors. No significant findings of pulmonary edema on the CTA. BNP however is 7800. Patient currently on IV Bumex. Good UOP yesterday at 2.1L. Lopressor added at low dose and appears to be tolerating. [place] appropriate medical management as vital signs tolerate. Daily weights. Heart healthy diet. Cardiology following and appreciate their input (6) Hypertension: Code(s): I10 - Essential (primary) hypertension Status: Acute Assessment and Plan: Patient's blood pressure was reviewed on 07/16 Blood pressure remains well controlled. Will continue current medications. Continue to monitor (7) Obstructive sleep apnea on CPAP: Code(s): G47.33 - Obstructive sleep apnea (adult) (pediatric); Z99.89 - Dependence on other enabling machines and devices Status: Inactive Assessment and Plan: He may have underlying right sided failure as noted by some of the CT scan findings and by echocardiogram in October. Auto titration of NIV. Continue to follow. (8) Hyperbilirubinemia: Code(s): E80.6 - Other disorders of bilirubin metabolism Status: Acute Assessment and Plan: Patient with mixed picture with hyperbilirubinemia. Abdominal ultrasound shows findings consistent with congestive changes in the liver probably related to his cardiomyopathy. Noted to have hepatic steatosis and minimal ascites but no other findings by CT scan. Suspect elevated bili from hepatic congestion from his right sided failure and cholestasis from poor oral intake. This is improving as his oral intake improves and his fluid status improves. Continue to monitor. (9) Elevated troponin: Code(s): R77.8 - Other specified abnormalities of plasma proteins Status: Acute Assessment and Plan: Troponins are elevated to 0.066 but flat. Most likely type II [place] related to above. (10) Early satiety: Code(s): R68.81 - Early satiety Status: Acute Assessment and Plan: Eating better now at 100% but not ordering much food. Nothing concerning by CT scan. UGI series normal. Continue Pepcid. Encourage oral intake. Consider GES tomorrow. (11) DVT prophylaxis: Code(s): Z29.9 - Enc
[2020-07-17] VITALS (17 sets, daily range): BP systolic 97–129; BP diastolic 64–76; PULSE 54–86; RESP 18–22; TEMP 35.7–36.6; O2SAT 98–100
[2020-07-17 05:03] LABS: Hematocrit 40.6 % (42.0-52.0); Hemoglobin 13.8 g/dL (14.0-18.0); Mean Corpuscular Volume 91.2 fl (80-100); Mean Platelet Volume 11.7 fl (7.4-10.4); Platelet Count Result 130 k/mm3 (150-375); Red Blood Count 4.45 M/mm3 (4.6-6.20); White Blood Count 4.3 K/mm3 (4.5-10.0)
[2020-07-17 05:14] LABS: Anion Gap 4 mmol/L (8-16); Bilirubin,Total 3.7 mg/dL (0.2-1.3); Blood Urea Nitrogen 18 mg/dL (9-20); Calcium 7.8 mg/dL (8.4-10.2); Carbon Dioxide 30 mmol/L (22-30); Chloride 106 mmol/L (98-107); Estimated CRCL calculation 65 ml/min; Estimated Glomerular Filt Rate > 60; Glucose 91 mg/dL (75-110); Magnesium 1.7 mg/dL (1.6-2.3); Potassium 3.3 mmol/L (3.4-5.0); Sodium 140 mmol/L (137-145)
--- NOTE | 2020-07-17 08:15 | PM.PNCARD ---
Progress Note: A&P Assessment and Plan (1) NICM (nonischemic cardiomyopathy): Code(s): I42.8 - Other cardiomyopathies Status: Acute Assessment and Plan: Continue Bumentanide for edema. Low dose Metoprolol started but he is intolerant of Metoprolol and Coreg in the past and has discontinued them on his own. Intolerant of Carloz inhibitors. His BP runs low normal and will be difficult to start ARB and that is why he is not on it. (2) LAURIE on CPAP: Code(s): G47.33 - Obstructive sleep apnea (adult) (pediatric); Z99.89 - Dependence on other enabling machines and devices Status: Acute (3) ICD (implantable cardioverter-defibrillator) in place: Code(s): Z95.810 - Presence of automatic (implantable) cardiac defibrillator Status: Acute (4) Obesity (BMI 35.0-39.9 without comorbidity): Code(s): E66.9 - Obesity, unspecified Status: Acute (5) Syncope: Code(s): R55 - Syncope and collapse Status: Acute Assessment and Plan: Due to ventricular fibrillation. (6) Hyperbilirubinemia: Code(s): E80.6 - Other disorders of bilirubin metabolism Status: Acute (7) Elevated troponin: Code(s): R77.8 - Other specified abnormalities of plasma proteins Status: Acute Assessment and Plan: Slight and flat, he has known non-ICM. This could be due to chronic LV systolic dysfunction and ICD shock. (8) Ventricular fibrillation: Code(s): I49.01 - Ventricular fibrillation Status: Acute Assessment and Plan: [employer] rep ICD interrogated on 07/14/20 showing 2 episodes of ventricular fibrillation on 07/13/20 at 14:26 (lasted 32 seconds and treated with ATP) and at 15:07 (lasted 21 seconds and treated with ATP and shock). He is at risk for sudden cardiac arrest due to cardiomyopathy, hypomagnesemia. October 2016 left heart cath showed normal coronaries. Started Amiodarone 200 mg BID to prevent recurrence. He was started on low dose Metoprolol also, however, in the past he would discontinue Metoprolol or Coreg due to intolerance from malaise or fatigue. On Mag-Ox 400 mg BID for Mag 1.5. Replete potassium. Check EKG to measure QT interval. Subjective Date/time seen: 07/17/20 08:15 Denies chest pain or sob. Exam Const: General: cooperative, healthy appearing and comfortable Nutritional Appearance: obese HENMT: Head: laceration Other: Laceration with stitches above his right eye and edema/bruising of right eye, and cannot open his right eye. Resp: Auscultation: clear to auscultation bilaterally, no crackles, no rales, no rhonchi and no wheezes Cardio: Jugular venous distension: no JVD Rate: regular rate Rhythm: regular rhythm Heart sounds: no murmurs Peripheral pulses: dorsalis pedis present GI: GI Palp: No abdominal tenderness and Yes Soft to palpation Neuro: General: oriented to person, oriented to place and oriented to time Extrem: Right lower extremity: edema Left lower extremity: edema Other: Edema up to his thighs Objective Data Vital Signs Vital Signs: Vital Signs - 24 hr 07/16/20 10:00 07/16/20 10:52 07/16/20 10:53 Temperature Pulse Rate 66 80 80 Respiratory Rate Blood Pressure Pulse Oximetry 100 07/16/20 11:00 07/16/20 12:00 07/16/20 14:00 Temperature 97.9 F Pulse Rate 85 66 73 Respiratory Rate 18 Blood Pressure 132/99 H Pulse Oximetry 100 100 07/16/20 16:00 07/16/20 17:53 07/16/20 18:00 Temperature 97.5 F L Pulse Rate 70 85 81 Respiratory Rate 18 Blood Pressure 119/67 Pulse Oximetry 100 07/16/20 18:25 07/16/20 18:26 07/16/20 20:00 Temperature 97.2 F L Pulse Rate 67 Respiratory Rate 20 Blood Pressure 147/83 H 108/70 117/74 Pulse Oximetry 100 07/16/20 20:34 07/16/20 22:00 07/16/20 22:40 Temperature Pulse Rate 72 65 82 Respiratory Rate 15 Blood Pressure Pulse Oximetry 97 07/16/20 23:40 07/17/20 00:00 07/17/20 02:00 Temperature
[2020-07-17] MEDS: ENOXAPARIN 40 MG/0.4 ML SYRINGE SUB-Q (09:17)
[2020-07-17] MEDS: MAGNESIUM OXIDE 400 MG TABLET PO ×2 (09:17→17:21)
[2020-07-17] MEDS: FAMOTIDINE 20 MG TABLET PO ×2 (09:17→21:21)
[2020-07-17] MEDS: AMIODARONE HCL 200 MG TABLET PO ×2 (09:18→17:21)
[2020-07-17] MEDS: POTASSIUM CHLORIDE 20 MEQ TABLET 40 MEQ PO (09:18)
[2020-07-17] MEDS: METOPROLOL TARTRATE 6.25 MG TABLET PO ×2 (09:19→21:21)
[2020-07-17] MEDS: FLUTICASONE PROPIONATE 0.05% NA SPR 16 GM BTL (*BKC) 2 SPRAY NASAL (09:19)
[2020-07-17] MEDS: BUMETANIDE INJ 1 MG/4 ML VIAL IV PUSH ×2 (09:19→17:21)
[2020-07-17] MEDS: MAGNESIUM SULF 2 GM/WATER 50ML 2 GM/50 ML BAG IVPB (09:24)
--- NOTE | 2020-07-17 14:36 | PM.IMPN ---
Progress Note: A&P Assessment and Plan (1) Ventricular fibrillation: Code(s): I49.01 - Ventricular fibrillation Status: Acute Assessment and Plan: Patient had a syncopal episode upon standing. CTA was negative for PE. ICD interrogation showing 2 episodes of VFib on 07/13/20 at 14:26 (lasted 32 seconds and treated with ATP) and at 15:07 (lasted 21 seconds and treated with ATP and shock). He was started on Amiodarone to prevent recurrence. Right flank palpable pain probably trauma related to pain. (2) Syncope: Code(s): R55 - Syncope and collapse Status: Acute Assessment and Plan: As above. Syncope related to 2 episodes of VFib. (3) Forehead laceration: Qualifiers: Encounter type: initial encounter Qualified Code(s): S01.81XA - Laceration without foreign body of other part of head, initial encounter Code(s): S01.81XA - Laceration without foreign body of other part of head, initial encounter Status: Acute Assessment and Plan: Forehead laceration has been sutured. No eye involvement. (4) Hematuria: Code(s): R31.9 - Hematuria, unspecified Status: Acute Assessment and Plan: Patient strained and had billy heamturia. He had a bladder scan but only showed 150mL. Patient states he has voided since and urine clear now. UA noted and this did not reflex to culture. He was encouraged not to strain. Follow. (5) Non-ischemic cardiomyopathy: Code(s): I42.8 - Other cardiomyopathies Status: Inactive Assessment and Plan: Echocardiogram in October of 2019 showing EF of 20-25% with normal diastolic function. He had [id number] MR and TR. Patient is only on Bumex. He is intolerant to Toprol and ARB. He is allergic to ANGEL inhibitors. No significant findings of pulmonary edema on the CTA. BNP however is 7800. Patient currently on IV Bumex. Good UOP yesterday at 2.3L. Lopressor added at low dose and appears to be tolerating. [place] appropriate medical management as vital signs tolerate. Daily weights. Heart healthy diet. Cardiology following and appreciate their input. (6) Hypertension: Code(s): I10 - Essential (primary) hypertension Status: Acute Assessment and Plan: Patient's blood pressure was reviewed on 07/17 Blood pressure remains well controlled. Will continue current medications. Continue to monitor (7) Obstructive sleep apnea on CPAP: Code(s): G47.33 - Obstructive sleep apnea (adult) (pediatric); Z99.89 - Dependence on other enabling machines and devices Status: Inactive Assessment and Plan: He may have underlying right sided failure as noted by some of the CT scan findings and by echocardiogram in October. Auto titration of NIV. Continue to follow. (8) Hyperbilirubinemia: Code(s): E80.6 - Other disorders of bilirubin metabolism Status: Acute Assessment and Plan: Patient with mixed picture with hyperbilirubinemia. Abdominal ultrasound shows findings consistent with congestive changes in the liver probably related to his cardiomyopathy. Noted to have hepatic steatosis and minimal ascites but no other findings by CT scan. Suspect elevated bili from hepatic congestion from his right sided failure and cholestasis from poor oral intake. This is improving as his oral intake improves and his fluid status improves. Continue to monitor. (9) Elevated troponin: Code(s): R77.8 - Other specified abnormalities of plasma proteins Status: Acute Assessment and Plan: Troponins are elevated to 0.066 but flat. Most likely type II [place] related to above. (10) Early satiety: Code(s): R68.81 - Early satiety Status: Acute Assessment and Plan: Eating better now at 100% but not ordering much food. Nothing concerning by CT scan. UGI series normal. Continue Pepcid. Encourage oral intake. Dietary evaluation. Con
[2020-07-18] VITALS (20 sets, daily range): BP systolic 97–140; BP diastolic 65–85; PULSE 36–96; RESP 18–22; TEMP 35.7–36.7; O2SAT 98–100
[2020-07-18 05:42] LABS: Anion Gap 4 mmol/L (8-16); Blood Urea Nitrogen 17 mg/dL (9-20); Calcium 8.1 mg/dL (8.4-10.2); Carbon Dioxide 32 mmol/L (22-30); Chloride 104 mmol/L (98-107); Estimated CRCL calculation 71 ml/min; Estimated Glomerular Filt Rate > 60; Glucose 83 mg/dL (75-110); Magnesium 1.7 mg/dL (1.6-2.3); Potassium 3.2 mmol/L (3.4-5.0); Sodium 140 mmol/L (137-145)
--- NOTE | 2020-07-18 06:41 | ECG_ITS ---
Measurements Intervals Nettie Rate: 52 P: FL: 0 QRS: -90 QRSD: 106 T: 48 QT: 464 QTc: 434 Interpretive Statements SINUS BRADYCARDIA ATRIAL AND VENTRICULAR PREMATURE COMPLEXES LEFT AXIS DEVIATION LOW QRS VOLTAGE- DIFFUE LEADS POOR R WAVE PROGRESSION, CONSIDER ANTEROLATERAL INFARCT CONSDIER INFERIOR INFARCT, AGE INDETERMINATE BORDERLINE T WAVE ABNORMALITY- HIGH LATERAL LEADS BASELINE ARTIFACT- I, II, AVR, AVL, AVF, V1 ABNORMAL ECG Electronically Signed On 07-18-2020 8:58:14 [employer] by Good Rivera D.O.
--- NOTE | 2020-07-18 07:34 | PM.PNCARD ---
Progress Note: A&P Assessment and Plan (1) NICM (nonischemic cardiomyopathy): Code(s): I42.8 - Other cardiomyopathies Status: Acute Assessment and Plan: Continue Bumentanide for edema. Low dose Metoprolol started but he is intolerant of Metoprolol and Coreg in the past and has discontinued them on his own. Intolerant of Carloz inhibitors. His BP runs low normal and will be difficult to start ARB and that is why he is not on it. (2) LAURIE on CPAP: Code(s): G47.33 - Obstructive sleep apnea (adult) (pediatric); Z99.89 - Dependence on other enabling machines and devices Status: Acute (3) ICD (implantable cardioverter-defibrillator) in place: Code(s): Z95.810 - Presence of automatic (implantable) cardiac defibrillator Status: Acute (4) Obesity (BMI 35.0-39.9 without comorbidity): Code(s): E66.9 - Obesity, unspecified Status: Acute (5) Syncope: Code(s): R55 - Syncope and collapse Status: Acute Assessment and Plan: Due to ventricular fibrillation. (6) Hyperbilirubinemia: Code(s): E80.6 - Other disorders of bilirubin metabolism Status: Acute (7) Elevated troponin: Code(s): R77.8 - Other specified abnormalities of plasma proteins Status: Acute Assessment and Plan: Slight and flat, he has known non-ICM. This could be due to chronic LV systolic dysfunction and ICD shock. (8) Ventricular fibrillation: Code(s): I49.01 - Ventricular fibrillation Status: Acute Assessment and Plan: [employer] rep ICD interrogated on 07/14/20 showing 2 episodes of ventricular fibrillation on 07/13/20 at 14:26 (lasted 32 seconds and treated with ATP) and at 15:07 (lasted 21 seconds and treated with ATP and shock). He is at risk for sudden cardiac arrest due to cardiomyopathy, hypomagnesemia. October 2016 left heart cath showed normal coronaries. Started Amiodarone 200 mg BID to prevent recurrence. He was started on low dose Metoprolol also, however, in the past he would discontinue Metoprolol or Coreg due to intolerance from malaise or fatigue. On Mag-Ox 400 mg BID for Mag 1.7 today. Replete potassium by increasing KCl 40 meq BID for Potassium 3.2. Check EKG to measure QT interval. Subjective Date/time seen: 07/18/20 07:34 Denies chest pain or sob. Exam Const: General: cooperative, healthy appearing and comfortable Nutritional Appearance: obese HENMT: Head: laceration Other: Laceration with stitches above his right eye and edema/bruising of right eye, and cannot open his right eye. Resp: Auscultation: clear to auscultation bilaterally, no crackles, no rales, no rhonchi and no wheezes Cardio: Jugular venous distension: no JVD Rate: regular rate Rhythm: regular rhythm Heart sounds: no murmurs Peripheral pulses: dorsalis pedis present GI: GI Palp: No abdominal tenderness and Yes Soft to palpation Neuro: General: oriented to person, oriented to place and oriented to time Extrem: Right lower extremity: edema Left lower extremity: edema Other: Edema up to his thighs Objective Data Vital Signs Vital Signs: Vital Signs - 24 hr 07/17/20 08:00 07/17/20 08:43 07/17/20 10:00 Temperature 97.0 F L Pulse Rate 60 64 80 Respiratory Rate 20 Blood Pressure 100/64 Pulse Oximetry 100 07/17/20 12:00 07/17/20 13:20 07/17/20 14:00 Temperature 96.6 F L Pulse Rate 60 62 61 Respiratory Rate 22 H Blood Pressure 102/71 Pulse Oximetry 99 07/17/20 16:00 07/17/20 17:40 07/17/20 18:00 Temperature 96.2 F L Pulse Rate 60 62 74 Respiratory Rate 22 H Blood Pressure 109/76 Pulse Oximetry 99 07/17/20 20:00 07/17/20 21:21 07/17/20 22:00 Temperature 97.4 F L Pulse Rate 60 63 58 L Respiratory Rate 20 Blood Pressure 97/64 L Pulse Oximetry 100 07/17/20 23:53 07/18/20 00:00 07/18/20 02:00 Temperature 97.8 F Pulse Rate 86 52 L 53 L Respiratory Rate 18 18 Blood Pressure 98/64 L Puls
[2020-07-18] MEDS: POTASSIUM CHLORIDE 20 MEQ TABLET.ER 40 MEQ PO ×2 (09:37→18:22)
[2020-07-18] MEDS: METOPROLOL TARTRATE 6.25 MG TABLET PO ×2 (09:38→20:45)
[2020-07-18] MEDS: FAMOTIDINE 20 MG TABLET PO ×2 (09:38→20:45)
[2020-07-18] MEDS: BUMETANIDE INJ 1 MG/4 ML VIAL IV PUSH ×2 (09:38→18:24)
[2020-07-18] MEDS: MAGNESIUM OXIDE 400 MG TABLET PO ×2 (09:38→18:24)
[2020-07-18] MEDS: AMIODARONE HCL 200 MG TABLET PO ×2 (09:38→18:24)
[2020-07-18] MEDS: ENOXAPARIN 40 MG/0.4 ML SYRINGE SUB-Q (09:39)
[2020-07-18] MEDS: FLUTICASONE PROPIONATE 0.05% NA SPR 16 GM BTL (*BKC) 2 SPRAY NASAL (09:39)
[2020-07-18] MEDS: EUCERIN CREAM 120 GM JAR 1 APPLIC TOPICAL (09:40)
--- NOTE | 2020-07-18 10:41 | PCDIET ---
Nutrition Follow-Up Complete: Nutrition Diagnosis: Predicted suboptimal oral intake related to decreased appetite as evidenced by patient statements, family statements per MD note. Nutrition Goal: Patient to consume 75% of meals/supplements or greater. Goal in progress. Patient reports decreased appetite, but continues to make sure he eats each meal. Remains on heart healthy diet with intake records revealing patient consuming 100% over past few meals. Patient does not care for Ensure, but is agreeable to try Frozen Nutritional Treat (300kcal, 9g protein). Recommend sending twice daily. Last recorded weight is 115.6 kg which is decreased from last review. -I/O with diuresis. Bowel Motility: Last documented BM on 07/16/20 x 1. Labs Reviewed: Hgb (13.8), Hct (40.6), K (3.2), Alb (2.6), Christina Ca (9.22) Meds Noted: Bumex, Mag-Ox, Pepcid, Lopressor, KCl Additional Notes: No pressure sores. Right eyebrow laceration documented. Will continue to monitor with same goal. Nutrition Monitoring and Evaluation: Follow up in 5 days.
--- NOTE | 2020-07-18 13:28 | PM.IMPN ---
Progress Note: A&P Assessment and Plan (1) Syncope: Code(s): R55 - Syncope and collapse Status: Acute Assessment and Plan: Patient had a syncopal episode upon standing. CTA was negative for PE. ICD interrogation showing 2 episodes of VFib on 07/13/20 at 14:26 (lasted 32 seconds and treated with ATP) and at 15:07 (lasted 21 seconds and treated with ATP and shock). He was started on Amiodarone to prevent recurrence. Patient has is stable at present time. Will continue to monitor for atrial fibrillation and syncopal episodes. (2) Ventricular fibrillation: Code(s): I49.01 - Ventricular fibrillation Status: Acute Assessment and Plan: As above. ICD interrogation showing 2 episodes of VFib, one that required 1 shock. As above. (3) Forehead laceration: Qualifiers: Encounter type: initial encounter Qualified Code(s): S01.81XA - Laceration without foreign body of other part of head, initial encounter Code(s): S01.81XA - Laceration without foreign body of other part of head, initial encounter Status: Acute Assessment and Plan: Forehead laceration has been sutured. Will use ice to help with swelling. Continue to monitor for eye symptoms. (4) Hematuria: Code(s): R31.9 - Hematuria, unspecified Status: Acute Assessment and Plan: Patient strained and had billy heamturia. He had a bladder scan but only showed 150mL. Patient states he has voided since and urine clear now. UA noted and this did not reflex to culture. He was encouraged not to strain No hematuria noted present time. Advised to notify if he has any gross hematuria. (5) Non-ischemic cardiomyopathy: Code(s): I42.8 - Other cardiomyopathies Status: Inactive Assessment and Plan: Echocardiogram in October of 2019 showing EF of 20-25% with normal diastolic function. He had zmqb-ya-upjyteim MR and TR. Patient is only on Bumex. He is intolerant to Toprol and ARB. He is allergic to ANGEL inhibitors. No significant findings of pulmonary edema on the CTA. BNP however is 7800. Patient is on IV Bumex. Lopressor added at low dose and appers to be toelrting. [place] appropriate medical management as vital signs tolerate. Daily weights. Heart healthy diet. Cardiology following and appreciate their input (6) Hypertension: Code(s): I10 - Essential (primary) hypertension Status: Acute Assessment and Plan: Patient's blood pressure was reviewed on 07/15 Blood pressure remains well controlled. Will continue current medications. Continue to monitor (7) Obstructive sleep apnea on CPAP: Code(s): G47.33 - Obstructive sleep apnea (adult) (pediatric); Z99.89 - Dependence on other enabling machines and devices Status: Inactive Assessment and Plan: He may have underlying right sided failure as noted by some of the CT scan findings and by echocardiogram in October. Auto titration of NIV. Continue to follow. (8) Hyperbilirubinemia: Code(s): E80.6 - Other disorders of bilirubin metabolism Status: Acute Assessment and Plan: Patient with mixed picture with hyperbilirubinemia. Abdominal ultrasound shows findings consistent with congestive changes in the liver probably related to his cardiomyopathy. Noted to have hepatic steatosis and minimal ascites but no other findings by CT scan. Continue to monitor. This is improving as his oral intake improves and his fluid status improves. (9) Elevated troponin: Code(s): R77.8 - Other specified abnormalities of plasma proteins Status: Acute Assessment and Plan: Troponins are elevated to 0.066 but flat. Most likely type II [place] related to above. (10) Early satiety: Code(s): R68.81 - Early satiety Status: Acute Assessment and Plan: Eating better now at 100%. Nothing concerning by CT scan. John check UGI series given that the 100% can
[2020-07-19] VITALS (19 sets, daily range): BP systolic 90–114; BP diastolic 51–78; PULSE 49–80; RESP 18–20; TEMP 36.2–36.6; O2SAT 98–100
[2020-07-19 07:04] LABS: Anion Gap 2 mmol/L (8-16); Blood Urea Nitrogen 17 mg/dL (9-20); Calcium 7.9 mg/dL (8.4-10.2); Carbon Dioxide 32 mmol/L (22-30); Chloride 104 mmol/L (98-107); Estimated CRCL calculation 70 ml/min; Estimated Glomerular Filt Rate > 60; Glucose 79 mg/dL (75-110); Magnesium 1.8 mg/dL (1.6-2.3); Potassium 3.7 mmol/L (3.4-5.0); Sodium 138 mmol/L (137-145)
--- NOTE | 2020-07-19 08:03 | PM.PNCARD ---
Progress Note: A&P Assessment and Plan (1) NICM (nonischemic cardiomyopathy): Code(s): I42.8 - Other cardiomyopathies Status: Acute Assessment and Plan: Continue Bumentanide for edema. Low dose Metoprolol started but he is intolerant of Metoprolol and Coreg in the past and has discontinued them on his own. Intolerant of Carloz inhibitors. His BP runs low normal and will be difficult to start ARB and that is why he is not on it. (2) LAURIE on CPAP: Code(s): G47.33 - Obstructive sleep apnea (adult) (pediatric); Z99.89 - Dependence on other enabling machines and devices Status: Acute (3) ICD (implantable cardioverter-defibrillator) in place: Code(s): Z95.810 - Presence of automatic (implantable) cardiac defibrillator Status: Acute (4) Obesity (BMI 35.0-39.9 without comorbidity): Code(s): E66.9 - Obesity, unspecified Status: Acute (5) Syncope: Code(s): R55 - Syncope and collapse Status: Acute Assessment and Plan: Due to ventricular fibrillation. (6) Hyperbilirubinemia: Code(s): E80.6 - Other disorders of bilirubin metabolism Status: Acute (7) Elevated troponin: Code(s): R77.8 - Other specified abnormalities of plasma proteins Status: Acute Assessment and Plan: Slight and flat, he has known non-ICM. This could be due to chronic LV systolic dysfunction and ICD shock. (8) Ventricular fibrillation: Code(s): I49.01 - Ventricular fibrillation Status: Acute Assessment and Plan: [employer] rep ICD interrogated on 07/14/20 showing 2 episodes of ventricular fibrillation on 07/13/20 at 14:26 (lasted 32 seconds and treated with ATP) and at 15:07 (lasted 21 seconds and treated with ATP and shock). He is at risk for sudden cardiac arrest due to cardiomyopathy, hypomagnesemia. October 2016 left heart cath showed normal coronaries. Started Amiodarone 200 mg BID to prevent recurrence. He was started on low dose Metoprolol also, however, in the past he would discontinue Metoprolol or Coreg due to intolerance from malaise or fatigue. On Mag-Ox 400 mg BID for Mag 1.8 today. Continue KCl 40 meq BID for Potassium 3.7. Check EKG to measure QT interval. Subjective Date/time seen: 07/19/20 08:03 Denies chest pain or sob. He walked with PT yesterday down hallway without any problems. Exam Const: General: cooperative, healthy appearing and comfortable Nutritional Appearance: obese HENMT: Head: laceration Other: Laceration with stitches above his right eye and edema/bruising of right eye, and cannot open his right eye. Resp: Auscultation: clear to auscultation bilaterally, no crackles, no rales, no rhonchi and no wheezes Cardio: Jugular venous distension: no JVD Rate: regular rate Rhythm: regular rhythm Heart sounds: no murmurs Peripheral pulses: dorsalis pedis present GI: GI Palp: No abdominal tenderness and Yes Soft to palpation Neuro: General: oriented to person, oriented to place and oriented to time Extrem: Right lower extremity: edema Left lower extremity: edema Other: Firm woody edema of legs Objective Data Vital Signs Vital Signs: Vital Signs - 24 hr 07/18/20 08:32 07/18/20 09:38 07/18/20 10:00 Temperature 96.4 F L Pulse Rate 61 64 64 Respiratory Rate 22 H Blood Pressure 121/78 Pulse Oximetry 100 07/18/20 12:00 07/18/20 12:36 07/18/20 14:00 Temperature 97.4 F L Pulse Rate 59 L 58 L 74 Respiratory Rate 20 Blood Pressure 103/69 Pulse Oximetry 100 98 07/18/20 16:00 07/18/20 17:04 07/18/20 18:00 Temperature 98.0 F Pulse Rate 62 63 57 L Respiratory Rate 22 H Blood Pressure 101/65 Pulse Oximetry 100 100 07/18/20 18:24 07/18/20 20:00 07/18/20 20:45 Temperature 97.0 F L Pulse Rate 68 60 60 Respiratory Rate 18 Blood Pressure 115/85 Pulse Oximetry 100 07/18/20 22:00 07/18/20 23:47 07/18/20 23:49 Temperature 96.2 F L Pulse Rate 50 L 96 96 Respi
--- NOTE | 2020-07-19 11:07 | PM.IMPN ---
Progress Note: A&P Assessment and Plan (1) Syncope: Code(s): R55 - Syncope and collapse Status: Acute Assessment and Plan: Patient had a syncopal episode upon standing. CTA was negative for PE. ICD interrogation showing 2 episodes of VFib on 07/13/20 at 14:26 (lasted 32 seconds and treated with ATP) and at 15:07 (lasted 21 seconds and treated with ATP and shock). He was started on Amiodarone to prevent recurrence. Patient has is stable at present time. Will continue to monitor for atrial fibrillation and syncopal episodes. No new episode of syncope noted (2) Ventricular fibrillation: Code(s): I49.01 - Ventricular fibrillation Status: Acute Assessment and Plan: As above. ICD interrogation showing 2 episodes of VFib, one that required 1 shock. Will continue to monitor electrolytes and ventricular fibrillation. (3) Forehead laceration: Qualifiers: Encounter type: initial encounter Qualified Code(s): S01.81XA - Laceration without foreign body of other part of head, initial encounter Code(s): S01.81XA - Laceration without foreign body of other part of head, initial encounter Status: Acute Assessment and Plan: Forehead laceration has been sutured. Will use ice to help with swelling. Continue to monitor for eye symptoms. (4) Hematuria: Code(s): R31.9 - Hematuria, unspecified Status: Acute Assessment and Plan: Patient strained and had billy heamturia. He had a bladder scan but only showed 150mL. Patient states he has voided since and urine clear now. UA noted and this did not reflex to culture. He was encouraged not to strain No hematuria noted present time. Advised to notify if he has any gross hematuria. (5) Non-ischemic cardiomyopathy: Code(s): I42.8 - Other cardiomyopathies Status: Inactive Assessment and Plan: Echocardiogram in October of 2019 showing EF of 20-25% with normal diastolic function. He had wnju-ul-oglhccmh MR and TR. Patient is only on Bumex. He is intolerant to Toprol and ARB. He is allergic to ANGEL inhibitors. No significant findings of pulmonary edema on the CTA. BNP however is 7800. Patient is on IV Bumex. Lopressor added at low dose and appers to be toelrting. [place] appropriate medical management as vital signs tolerate. Daily weights. Heart healthy diet. Cardiology following and appreciate their input (6) Hypertension: Code(s): I10 - Essential (primary) hypertension Status: Acute Assessment and Plan: Patient's blood pressure was reviewed on 07/15 Blood pressure remains well controlled. Will continue current medications. Continue to monitor (7) Obstructive sleep apnea on CPAP: Code(s): G47.33 - Obstructive sleep apnea (adult) (pediatric); Z99.89 - Dependence on other enabling machines and devices Status: Inactive Assessment and Plan: He may have underlying right sided failure as noted by some of the CT scan findings and by echocardiogram in October. Auto titration of NIV. Continue to follow. (8) Hyperbilirubinemia: Code(s): E80.6 - Other disorders of bilirubin metabolism Status: Acute Assessment and Plan: Patient with mixed picture with hyperbilirubinemia. Abdominal ultrasound shows findings consistent with congestive changes in the liver probably related to his cardiomyopathy. Noted to have hepatic steatosis and minimal ascites but no other findings by CT scan. Continue to monitor. This is improving as his oral intake improves and his fluid status improves. (9) Elevated troponin: Code(s): R77.8 - Other specified abnormalities of plasma proteins Status: Acute Assessment and Plan: Troponins are elevated to 0.066 but flat. Most likely type II [place] related to above. (10) Early satiety: Code(s): R68.81 - Early satiety Status: Acute Assessment and Plan: Eating better
[2020-07-19] MEDS: METOPROLOL TARTRATE 6.25 MG TABLET PO ×2 (11:11→20:54)
[2020-07-19] MEDS: POTASSIUM CHLORIDE 20 MEQ TABLET.ER 40 MEQ PO ×2 (11:11→16:10)
[2020-07-19] MEDS: FLUTICASONE PROPIONATE 0.05% NA SPR 16 GM BTL (*BKC) 2 SPRAY NASAL (11:12)
[2020-07-19] MEDS: ENOXAPARIN 40 MG/0.4 ML SYRINGE SUB-Q (11:12)
[2020-07-19] MEDS: AMIODARONE HCL 200 MG TABLET PO ×2 (11:12→16:10)
[2020-07-19] MEDS: FAMOTIDINE 20 MG TABLET PO ×2 (11:12→20:54)
[2020-07-19] MEDS: MAGNESIUM OXIDE 400 MG TABLET PO ×3 (11:12→17:00)
[2020-07-19] MEDS: EUCERIN CREAM 120 GM JAR 1 APPLIC TOPICAL (11:13)
[2020-07-19] MEDS: BUMETANIDE INJ 1 MG/4 ML VIAL IV PUSH ×2 (11:13→16:11)
[2020-07-20] VITALS (11 sets, daily range): BP systolic 90–116; BP diastolic 57–78; PULSE 47–62; RESP 12–20; TEMP 36.1–37.1; O2SAT 94–100
[2020-07-20 05:17] LABS: Anion Gap 4 mmol/L (8-16); Blood Urea Nitrogen 20 mg/dL (9-20); Calcium 7.6 mg/dL (8.4-10.2); Carbon Dioxide 32 mmol/L (22-30); Chloride 103 mmol/L (98-107); Estimated CRCL calculation 64 ml/min; Estimated Glomerular Filt Rate > 60; Glucose 85 mg/dL (75-110); Magnesium 1.9 mg/dL (1.6-2.3); Sodium 139 mmol/L (137-145)
--- NOTE | 2020-07-20 06:57 | ECG_ITS ---
Measurements Intervals [place] Rate: 55 P: 42 MD: 212 QRS: 255 QRSD: 102 T: 180 QT: 321 QTc: 309 Interpretive Statements SINUS BRADYCARDIA WITH FIRST DEGREE AV BLOCK VENTRICULAR PREMATURE COMPLEX LOW QRS VOLTAGE- DIFFUSE LEADS BORDERLINE T WAVE ABNORMALITY- ANTEROLATERAL LEADS BASELINE ARTIFACT- I, II, AVR, AVL,A VF, V1-V6 ABNORMAL ECG Electronically Signed On 07-20-2020 15:52:23 [employer] by Good Rivera D.O.
[2020-07-20] MEDS: FAMOTIDINE 20 MG TABLET PO ×2 (10:11→20:15)
[2020-07-20] MEDS: FLUTICASONE PROPIONATE 0.05% NA SPR 16 GM BTL (*BKC) 2 SPRAY NASAL (10:11)
[2020-07-20] MEDS: ENOXAPARIN 40 MG/0.4 ML SYRINGE SUB-Q (10:11)
[2020-07-20] MEDS: MAGNESIUM OXIDE 400 MG TABLET PO ×3 (10:11→17:45)
[2020-07-20] MEDS: METOPROLOL TARTRATE 6.25 MG TABLET PO ×2 (10:12→20:15)
[2020-07-20] MEDS: POTASSIUM CHLORIDE 20 MEQ TABLET.ER 40 MEQ PO ×2 (10:12→17:46)
[2020-07-20] MEDS: BUMETANIDE INJ 1 MG/4 ML VIAL IV PUSH ×2 (10:12→17:45)
[2020-07-20] MEDS: AMIODARONE HCL 200 MG TABLET PO ×2 (10:12→17:46)
[2020-07-20] MEDS: EUCERIN CREAM 120 GM JAR 1 APPLIC TOPICAL (10:14)
--- NOTE | 2020-07-20 10:33 | PM.PNCARD ---
Progress Note: A&P Assessment and Plan (1) NICM (nonischemic cardiomyopathy): Code(s): I42.8 - Other cardiomyopathies Status: Acute Assessment and Plan: Continue Bumentanide for edema. Low dose Metoprolol started but he is intolerant of Metoprolol and Coreg in the past and has discontinued them on his own. Intolerant of Carloz inhibitors. His BP runs low normal and will be difficult to start ARB and that is why he is not on it. (2) LAURIE on CPAP: Code(s): G47.33 - Obstructive sleep apnea (adult) (pediatric); Z99.89 - Dependence on other enabling machines and devices Status: Acute (3) ICD (implantable cardioverter-defibrillator) in place: Code(s): Z95.810 - Presence of automatic (implantable) cardiac defibrillator Status: Acute (4) Obesity (BMI 35.0-39.9 without comorbidity): Code(s): E66.9 - Obesity, unspecified Status: Acute (5) Syncope: Code(s): R55 - Syncope and collapse Status: Acute Assessment and Plan: Due to ventricular fibrillation. (6) Hyperbilirubinemia: Code(s): E80.6 - Other disorders of bilirubin metabolism Status: Acute (7) Elevated troponin: Code(s): R77.8 - Other specified abnormalities of plasma proteins Status: Acute Assessment and Plan: Slight and flat, he has known non-ICM. This could be due to chronic LV systolic dysfunction and ICD shock. (8) Ventricular fibrillation: Code(s): I49.01 - Ventricular fibrillation Status: Acute Assessment and Plan: [employer] rep ICD interrogated on 07/14/20 showing 2 episodes of ventricular fibrillation on 07/13/20 at 14:26 (lasted 32 seconds and treated with ATP) and at 15:07 (lasted 21 seconds and treated with ATP and shock). He is at risk for sudden cardiac arrest due to cardiomyopathy, hypomagnesemia. October 2016 left heart cath showed normal coronaries. Started Amiodarone 200 mg BID to prevent recurrence. He was started on low dose Metoprolol also, however, in the past he would discontinue Metoprolol or Coreg due to intolerance from malaise or fatigue. On Mag-Ox 400 mg BID. Continue KCl 40 meq BID on IV Bumetanide Check EKG to measure QT interval. Upon discharge, would keep him on Bumetanide 2 mg PO daily. And, Mag Ox 400 mg BID and KCl 20 meq daily. F/U with me in 1 week after discharge. Subjective Date/time seen: 07/20/20 10:33 Denies chest pain or sob. Exam Const: General: cooperative, healthy appearing and comfortable Nutritional Appearance: obese HENMT: Head: laceration Other: Laceration with stitches above his right eye and edema/bruising of right eye, and cannot open his right eye. Resp: Auscultation: clear to auscultation bilaterally, no crackles, no rales, no rhonchi and no wheezes Cardio: Jugular venous distension: no JVD Rate: regular rate Rhythm: regular rhythm Heart sounds: no murmurs Peripheral pulses: dorsalis pedis present GI: GI Palp: No abdominal tenderness and Yes Soft to palpation Neuro: General: oriented to person, oriented to place and oriented to time Extrem: Right lower extremity: edema Left lower extremity: edema Other: Firm woody edema of legs Objective Data Vital Signs Vital Signs: Vital Signs - 24 hr 07/19/20 11:11 07/19/20 11:12 07/19/20 11:35 Temperature 98 F Pulse Rate 60 60 56 L Respiratory Rate 18 Blood Pressure 103/77 Pulse Oximetry 100 07/19/20 12:00 07/19/20 14:00 07/19/20 16:00 Temperature 98 F Pulse Rate 53 L 62 59 L Respiratory Rate 18 Blood Pressure 114/78 Pulse Oximetry 99 07/19/20 16:10 07/19/20 18:00 07/19/20 19:41 Temperature 97.6 F Pulse Rate 60 61 56 L Respiratory Rate 18 Blood Pressure 107/67 Pulse Oximetry 100 07/19/20 20:00 07/19/20 20:54 07/19/20 22:00 Temperature Pulse Rate 53 L 58 L 50 L Respiratory Rate 18 Blood Pressure Pulse Oximetry 100 07/19/20 23:39 07/20/20 00:00 07/20/20 02:00 [facility]
--- NOTE | 2020-07-20 10:49 | PCNFU ---
Nutrition Follow-Up Complete: Predicted suboptimal oral intake related to decreased appetite as evidenced by patient statements, family statements per MD note. Goal: Patient to consume 75% of meals/supplements or greater. Patient is meeting current goal. No new goal at this time Pt current nutrition is heart healthy diet with ensure compact BID as well as a frozen nutritional treat BID. Last recorded weight is 111.9 kg. Bowel Motility: + BM 07/19 Labs Reviewed: No altered labs as of 07/20. Meds Noted: Bumex, Lovenox, Pepcid, Mag-ox, Lopressor, Kcl tablet Additional Notes: Followed up with patient today. Patient has been eating 100% of meals but does not like the frozen nutritional treat he has been receiving and would like those to stop. He does enjoy ensure compact and is continuing to receive them BID providing an additional 220 calories and 9 grams of protein. Follow up in 5 days.
--- NOTE | 2020-07-20 11:01 | PCNSR ---
On 07/20/20, the student, Sherie Bernal, provided care and completed [facility] documentation on this patient. I have reviewed the student's documentation and agree with the findings.
--- NOTE | 2020-07-20 15:44 | P.PNIM_ITS ---
Progress Note: A&P Assessment and Plan (1) Syncope: Code(s): R55 - Syncope and collapse Status: Acute Assessment and Plan: Patient had a syncopal episode upon standing. CTA was negative for PE. ICD interrogation showing 2 episodes of VFib on 07/13/20 at 14:26 (lasted 32 seconds and treated with ATP) and at 15:07 (lasted 21 seconds and treated with ATP and shock). He was started on Amiodarone to prevent recurrence. Patient has is stable at present time. Will continue to monitor for atrial fibrillation and syncopal episodes. No new episode of syncope noted (2) Ventricular fibrillation: Code(s): I49.01 - Ventricular fibrillation Status: Acute Assessment and Plan: As above. ICD interrogation showing 2 episodes of VFib, one that required 1 shock. Will continue to monitor electrolytes and ventricular fibrillation. (3) Forehead laceration: Qualifiers: Encounter type: initial encounter Qualified Code(s): S01.81XA - L aceration without foreign body of other part of head, initial encounter Code(s): S01.81XA - Laceration without foreign body of other part of head, initial enc ounter Status: Acute Assessment and Plan: Forehead laceration has been sutured. Will use ice to help with swelling. Continue to monitor for eye symptoms. (4) Hematuria: Code(s): R31.9 - Hematuria, unspecified Status: Acute Assessment and Plan: Patient strained and had billy heamturia. He had a bladder scan but only showed 150mL. Patient states he has voided since and urine clear now. UA noted and this did not reflex to culture. He was encouraged not to strain No hematuria noted present time. Advised to notify if he has any gross hematuria. (5) Non-ischemic cardiomyopathy: Code(s): I42.8 - Other cardiomyopathies Status: Inactive Assessment and Plan: Echocardiogram in October of 2019 showing EF of 20-25% with normal diastolic function. He had paqz-al-tolzapld MR and TR. Patient is only on Bumex. He is intolerant to Toprol and ARB. He is allergic to ANGEL inhibitors. No significant findings of pulmonary edema on the CTA. BNP however is 7800. Patient is on IV Bumex. Lopressor added at low dose and appers to be toelrting. [place] appropriate medical management as vital signs tolerate. Daily weights. Heart healthy diet. Cardiology following and appreciate their input (6) Hypertension: Code(s): I10 - Essential (primary) hypertension Status: Acute Assessment and Plan: Patient's blood pressure was reviewed on 07/15 Blood pressure remains well controlled. Will continue current medications. Continue to monitor (7) Obstructive sleep apnea on CPAP: Code(s): G47.33 - Obstructive sleep apnea (adult) (pediatric); Z99.89 - Dependence on other enabling machines and devices Status: Inactive Assessment and Plan: He may have underlying right sided failure as noted by some of the CT scan findings and by echocardiogram in October. Auto titration of NIV. Continue to follow. (8) Hyperbilirubinemia: Code(s): E80.6 - Other disorders of bilirubin metabolism Status: Acute Assessment and Plan: Patient with mixed picture with hyperbilirubinemia. Abdominal ultrasound shows findings consistent with congestive changes in the liver probably related to his cardiomyopathy. Noted to have hepatic steatosis and minimal ascites but no other findings by CT scan. Continue to monitor. This is improving as his oral intake improves and his fluid status improves.
[2020-07-21] VITALS: PULSE 46
[2020-07-21 02:00] VITALS: PULSE 45
[2020-07-21 04:00] VITALS: BP 100/65; PULSE 46; PULSE 49; RESP 20; TEMP 36.1; O2SAT 96
[2020-07-21 08:00] VITALS: BP 109/67; PULSE 54; PULSE 62; RESP 18; TEMP 36.7; O2SAT 100
--- NOTE | 2020-07-21 08:06 | PM.PNCARD ---
Progress Note: A&P Assessment and Plan (1) NICM (nonischemic cardiomyopathy): Code(s): I42.8 - Other cardiomyopathies Status: Acute Assessment and Plan: Continue Bumentanide for edema. Low dose Metoprolol started but he is intolerant of Metoprolol and Coreg in the past and has discontinued them on his own. Intolerant of Carloz inhibitors. His BP runs low normal and will be difficult to start ARB and that is why he is not on it. (2) LAURIE on CPAP: Code(s): G47.33 - Obstructive sleep apnea (adult) (pediatric); Z99.89 - Dependence on other enabling machines and devices Status: Acute (3) ICD (implantable cardioverter-defibrillator) in place: Code(s): Z95.810 - Presence of automatic (implantable) cardiac defibrillator Status: Acute (4) Obesity (BMI 35.0-39.9 without comorbidity): Code(s): E66.9 - Obesity, unspecified Status: Acute (5) Syncope: Code(s): R55 - Syncope and collapse Status: Acute Assessment and Plan: Due to ventricular fibrillation. (6) Hyperbilirubinemia: Code(s): E80.6 - Other disorders of bilirubin metabolism Status: Acute (7) Elevated troponin: Code(s): R77.8 - Other specified abnormalities of plasma proteins Status: Acute Assessment and Plan: Slight and flat, he has known non-ICM. This could be due to chronic LV systolic dysfunction and ICD shock. (8) Ventricular fibrillation: Code(s): I49.01 - Ventricular fibrillation Status: Acute Assessment and Plan: [employer] rep ICD interrogated on 07/14/20 showing 2 episodes of ventricular fibrillation on 07/13/20 at 14:26 (lasted 32 seconds and treated with ATP) and at 15:07 (lasted 21 seconds and treated with ATP and shock). He is at risk for sudden cardiac arrest due to cardiomyopathy, hypomagnesemia. October 2016 left heart cath showed normal coronaries. Started Amiodarone 200 mg BID to prevent recurrence. He was started on low dose Metoprolol also, however, in the past he would discontinue Metoprolol or Coreg due to intolerance from malaise or fatigue. On Mag-Ox 400 mg BID. Continue KCl 40 meq BID on IV Bumetanide Upon discharge, would keep him on Bumetanide 2 mg PO daily. And, Mag Ox 400 mg BID and KCl 20 meq daily. F/U with me in 1 week after discharge. Will order as an outpatient [facility] compression therapy full leg bilateral for edema of both legs due to venous insufficiency and secondary lymphedema. Subjective Date/time seen: 07/21/20 08:06 Denies chest pain or sob. He is ready to go home. Exam Const: General: cooperative, healthy appearing and comfortable Nutritional Appearance: obese HENMT: Head: laceration Other: Laceration with stitches above his right eye and edema/bruising of right eye, and cannot open his right eye. Resp: Auscultation: clear to auscultation bilaterally, no crackles, no rales, no rhonchi and no wheezes Cardio: Jugular venous distension: no JVD Rate: regular rate Rhythm: regular rhythm Heart sounds: no murmurs Peripheral pulses: dorsalis pedis present GI: GI Palp: No abdominal tenderness and Yes Soft to palpation Neuro: General: oriented to person, oriented to place and oriented to time Extrem: Right lower extremity: edema Left lower extremity: edema Other: Firm woody edema of legs Objective Data Vital Signs Vital Signs: Vital Signs - 24 hr 07/20/20 10:00 07/20/20 12:00 07/20/20 14:00 Temperature 98.1 F Pulse Rate 62 56 L 59 L Respiratory Rate 12 Blood Pressure 107/70 Pulse Oximetry 94 07/20/20 16:00 07/20/20 18:00 07/20/20 20:00 Temperature 98.8 F 97.3 F L Pulse Rate 54 L 58 L 55 L Respiratory Rate 12 18 Blood Pressure 106/67 102/62 Pulse Oximetry 100 98 07/20/20 23:58 07/21/20 00:00 07/21/20 02:00 Temperature 97 F L Pulse Rate 48 L 46 L 45 L Respiratory Rate 18 Blood Pressure 98/57 L Pulse Oximetry 96 07/21/20 04:00 Temperature 97 F L Pu
[2020-07-21 08:33] VITALS: PULSE 61
[2020-07-21] MEDS: MAGNESIUM OXIDE 400 MG TABLET PO ×2 (08:33→08:35)
[2020-07-21] MEDS: POTASSIUM CHLORIDE 20 MEQ TABLET.ER 40 MEQ PO (08:33)
[2020-07-21] MEDS: BUMETANIDE INJ 1 MG/4 ML VIAL IV PUSH (08:33)
[2020-07-21] MEDS: AMIODARONE HCL 200 MG TABLET PO (08:33)
[2020-07-21] MEDS: BUMETANIDE 1 MG TABLET 2 MG PO (08:34)
[2020-07-21] MEDS: ENOXAPARIN 40 MG/0.4 ML SYRINGE SUB-Q (08:34)
[2020-07-21] MEDS: FAMOTIDINE 20 MG TABLET PO (08:34)
[2020-07-21] MEDS: FLUTICASONE PROPIONATE 0.05% NA SPR 16 GM BTL (*BKC) 2 SPRAY NASAL (08:34)
[2020-07-21 08:35] VITALS: PULSE 57
[2020-07-21] MEDS: METOPROLOL TARTRATE 6.25 MG TABLET PO (08:35)
[2020-07-21] MEDS: EUCERIN CREAM 120 GM JAR 1 APPLIC TOPICAL (08:35)
--- NOTE | 2020-07-21 09:59 | PM.DS ---
DS: Admitting Diagnosis Admitting Diagnosis Admitting Diagnosis: 1. Syncopal episode 2. VFib DS: Discharge Diagnosis Discharge Diagnosis (1) Syncope: Code(s): R55 - Syncope and collapse Status: Acute Assessment and Plan: Patient had a syncopal episode upon standing. CTA was negative for PE. ICD interrogation showing 2 episodes of VFib on 07/13/20 at 14:26 (lasted 32 seconds and treated with ATP) and at 15:07 (lasted 21 seconds and treated with ATP and shock). He was started on Amiodarone to prevent recurrence. Patient has is stable at present time. Will continue to monitor for atrial fibrillation and syncopal episodes. No new episode of syncope noted (2) Ventricular fibrillation: Code(s): I49.01 - Ventricular fibrillation Status: Acute Assessment and Plan: As above. ICD interrogation showing 2 episodes of VFib, one that required 1 shock. Will continue to monitor electrolytes and ventricular fibrillation. (3) Forehead laceration: Qualifiers: Encounter type: initial encounter Qualified Code(s): S01.81XA - Laceration without foreign body of other part of head, initial encounter Code(s): S01.81XA - Laceration without foreign body of other part of head, initial encounter Status: Acute Assessment and Plan: Forehead laceration has been sutured. Will use ice to help with swelling. Continue to monitor for eye symptoms. (4) Hematuria: Code(s): R31.9 - Hematuria, unspecified Status: Acute Assessment and Plan: Patient strained and had billy heamturia. He had a bladder scan but only showed 150mL. Patient states he has voided since and urine clear now. UA noted and this did not reflex to culture. He was encouraged not to strain No hematuria noted present time. Advised to notify if he has any gross hematuria. (5) Non-ischemic cardiomyopathy: Code(s): I42.8 - Other cardiomyopathies Status: Inactive Assessment and Plan: Echocardiogram in October of 2019 showing EF of 20-25% with normal diastolic function. He had bndd-iz-pixgxhek MR and TR. Patient is only on Bumex. He is intolerant to Toprol and ARB. He is allergic to ANGEL inhibitors. No significant findings of pulmonary edema on the CTA. BNP however is 7800. Patient is on IV Bumex. Lopressor added at low dose and appers to be toelrting. [place] appropriate medical management as vital signs tolerate. Daily weights. Heart healthy diet. Cardiology following and appreciate their input (6) Hypertension: Code(s): I10 - Essential (primary) hypertension Status: Acute Assessment and Plan: Patient's blood pressure was reviewed on 07/15 Blood pressure remains well controlled. Will continue current medications. Continue to monitor (7) Obstructive sleep apnea on CPAP: Code(s): G47.33 - Obstructive sleep apnea (adult) (pediatric); Z99.89 - Dependence on other enabling machines and devices Status: Inactive Assessment and Plan: He may have underlying right sided failure as noted by some of the CT scan findings and by echocardiogram in October. Auto titration of NIV. Continue to follow. (8) Hyperbilirubinemia: Code(s): E80.6 - Other disorders of bilirubin metabolism Status: Acute Assessment and Plan: Patient with mixed picture with hyperbilirubinemia. Abdominal ultrasound shows findings consistent with congestive changes in the liver probably related to his cardiomyopathy. Noted to have hepatic steatosis and minimal ascites but no other findings by CT scan. Continue to monitor. This is improving as his oral intake improves and his fluid status improves. (9) Elevated troponin: Code(s): R77.8 - Other specified abnormalities of plasma proteins Status: Acute Assessment and Plan: Troponins are elevated to 0.066 but flat. Most likely type II [place] related to above. (10) Early satiety:
== END 2020-07-21 12:34 | disposition home or self-care (01) | DRG 987 ==
LOC: ANHED 17:34 → ANHIMU 21:18
PROVIDERS: Emergency Medicine; Physician Assistant; Admitting Provider Internal Medicine; Emergency Provider Emergency Medicine; PCP Internal Medicine; Visit Provider Internal Medicine
DX: I49.01 Ventricular fibrillation (principal); I21.A1 Myocardial infarction type 2; R55 Syncope and collapse; S01.81XA Laceration without foreign body of other part of head, initial encounter; Z20.822 Contact with and (suspected) exposure to COVID-19; R31.9 Hematuria, unspecified; I42.8 Other cardiomyopathies; G47.33 Obstructive sleep apnea (adult) (pediatric); I10 Essential (primary) hypertension; E80.6 Other disorders of bilirubin metabolism; R79.89 Other specified abnormal findings of blood chemistry; R68.81 Early satiety; K76.0 Fatty (change of) liver, not elsewhere classified; M19.90 Unspecified osteoarthritis, unspecified site; J45.909 Unspecified asthma, uncomplicated; N40.0 Benign prostatic hyperplasia without lower urinary tract symptoms; E83.42 Hypomagnesemia; E66.9 Obesity, unspecified; Z68.35 Body mass index [BMI] 35.0-35.9, adult; W18.39XA Other fall on same level, initial encounter; Z96.643 Presence of artificial hip joint, bilateral; F17.210 Nicotine dependence, cigarettes, uncomplicated; Z95.810 Presence of automatic (implantable) cardiac defibrillator
CPT/HCPCS: 12042; 36415; 70450; 71046; 71275; 72125; 74177; 74240; 74248; 76705; 80048; 80053; 80069; 80076; 81001; 82247; 82248; 82607; 82948; 83735; 83880; 84100; 84443; 84484; 85025; 85027; 85055; 85380; 85610; 90471; 90715; 93005; 93970; 96372; 96374; 96376; 97110; 97116; 97161; 97165; 97530; 97535; 99285; A9270; C9803; G0378; J1650; J3475; J7050; Q9967; U0003; U0005

== ENCOUNTER 2020-07-31 12:32 | Outpatient (CLI) | payer MEDICARE, SELFPAY ==
[2020-07-31 13:32] LABS: Anion Gap 2 mmol/L (8-16); Blood Urea Nitrogen 24 mg/dL (9-20); Calcium 8.5 mg/dL (8.4-10.2); Carbon Dioxide 32 mmol/L (22-30); Chloride 104 mmol/L (98-107); Estimated Glomerular Filt Rate > 60; Glucose 90 mg/dL (75-110); Magnesium 2.1 mg/dL (1.6-2.3); Potassium 4.2 mmol/L (3.4-5.0); Sodium 138 mmol/L (137-145)
== END 2020-07-31 12:33 | disposition home or self-care (01) ==
PROVIDERS: PCP Internal Medicine; Visit Provider Internal Medicine Cardiovascular Disease
DX: I89.0 Lymphedema, not elsewhere classified (principal)
CPT/HCPCS: 36415; 80048; 83735

== ENCOUNTER 2020-10-30 02:45 | Inpatient (IN) | payer MEDICARE, SELFPAY ==
[2020-10-30] VITALS (19 sets, daily range): BP systolic 96–117; BP diastolic 51–83; PULSE 47–71; RESP 11–25; TEMP 36.1–37.1; O2SAT 94–99; BMI 37.3
--- NOTE | ~2020-10-30 | XR_ITS ---
EXAMINATION: XR hip LT 2V w AP pelvis EXAM DATE: 10/30/2020 03:56 INDICATION: 2 falls in last 24 hours. Left hip pain. TECHNIQUE: Left hip frontal, 'frog leg' projections for interpretation. Frontal projection pelvis. There is no prior study for comparison. FINDINGS: Bilateral hip replacements. The orthopedic hardware is intact. Pelvic ring is intact. There are no acute fractures identified. IMPRESSION: Intact arthroplasties. Reviewed, dictated and finalized at location A. IMPRESSION: Intact arthroplasties.
--- NOTE | ~2020-10-30 | CT_ITS ---
EXAMINATION: CT brain wo con EXAM DATE: 10/30/2020 03:44 INDICATION: Fall. Head injury. TECHNIQUE: Spiral CT of the head was performed without contrast. Axial, coronal and sagittal images were reviewed. The dose-length product (DLP) for this examination was 681.00 mGy-cm. The exposure w as tailored according to patient size, and iterative reconstruction (ASIR) was used as additional dos e reduction technique. Comparison is made to prior examination from 07/13/2020. FINDINGS: There is no acute intraparenchymal hemorrhage. No evidence of intraparenchymal brain mass lesion. No evidence of acute infarction. Please note that initial head CT has limited sensitivity f or small or acute infarctions. 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 There is mild dread ventricular and subcortical hypodensity, nonspecific but probably related to small vessel ischemic di sease. There is mild to moderate prominence of the sulci and ventricles related to cerebral atrophy . There is intracranial carotid arteriosclerosis. There are no extra-axial collections. There is no mass effect or midline shift. The orbits are unremarkable. There is soft tissue swelling over th e right supraorbital region, brow. The visualized sinuses and mastoid air cells are well aerated. IMPRESSION: 1. 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 2. Chronic age related findings. 3. Right brow swelling. Reviewed, dictated and finalized at location A.
--- NOTE | ~2020-10-30 | XR_ITS ---
EXAMINATION: XR chest 1V portable EXAM DATE: 10/30/2020 03:57 INDICATION: Fall, left hip pain. 2 falls within 24 hours. Pacemaker. TECHNIQUE: Portable AP frontal chest x-ray was obtained. Comparison is made to prior examination from 07/13/2020. FINDINGS: There is single lead pacemaker/AICD device seen with tip projecting over the expected locat ion of right ventricle. The cardiac silhouette is enlarged. Some scattered parenchymal granulomas. No confluent consolidation, pneumothorax or pleural effusion suspected. There are mild bony degenerativ e changes. IMPRESSION: Cardiomegaly. Reviewed, dictated and finalized at location A. IMPRESSION: Cardiomegaly.
--- NOTE | 2020-10-30 03:04 | ECG_ITS ---
Measurements Intervals [place] Rate: 52 P: 73 [place]: 220 QRS: 241 QRSD: 109 T: 132 QT: 459 QTc: 430 Interpretive Statements SINUS BRADYCARDIA WITH FIRST DEGREE AV BLOCK LOW QRS VOLTAGE IN LIMB LEADS LATERAL INFARCT, AGE INDETERMINATE BORDERLINE T WAVE ABNORMALITY- HIGH LATERAL LEADS BASELINE ARTIFACT- I, II, III, AVR, AVL, AVF, V5-V6 ABNORMAL ECG Electronically Signed On 10-30-2020 7:21:28 CDT by Good Rivera D.O.
--- NOTE | 2020-10-30 03:15 | ED.GENADULT ---
HPI - General Adult General Chief complaint: Fall Stated complaint: Fallx2 in 24 hrs Time Seen by Provider: 10/30/20 02:49 Source: RN notes reviewed History of Present Illness HPI narrative: Patient presents to emergency department from home for weakness. Patient states he has been more weak today and is subsequently had 2 falls since he fell this evening is unable to get up on his own he denies any injury from fall denies hitting his head or any loss of consciousness patient states that he supposed to be taking bumetanide for CHF but has not been taking his medication as prescribed. He states he has been taking 2 mg of Bumex daily but is only been taking 0.5 mg or 1 mg for the past 1 to 2 months as he does not like to urinate that much. He does note increased swelling in his legs as well as increased shortness of breath worse with exertion denies any fevers or chills, chest pain, abdominal pain nausea vomiting or any other symptoms patient does note mild left-sided hip pain. Patient states he is followed by Dr. Rivera Related Data Allergies Allergy/AdvReac Type Severity Reaction Status Date / Time lisinopril AdvReac Mild Cough Verified 10/30/20 02:57 Review of Systems Review of Systems: Narrative: Gen.: Denies fevers or chills Eyes: Denies eye pain or visual change ENT: Denies congestion Respiratory: Reports shortness of breath CV: Denies chest pain or palpitations GI: Denies abdominal pain nausea, emesis or diarrhea denies burning, urgency, frequency or hematuria Musculoskeletal: Denies back pain reports left-sided hip pain Neuro: Reports weakness Skin: Denies rash Except as documented, all other systems reviewed and negative [facility] Past Medical History Medical History Arthritis Asthma Benign prostate hyperplasia Hypertension Hypertension Mild reactive airways disease Non-ischemic cardiomyopathy Non-ischemic cardiomyopathy Status post ICD insertion. Obstructive sleep apnea on CPAP Obstructive sleep apnea on CPAP Osteoarthritis Surgical History Surgical History History of bilateral hip replacements History of bilateral hip replacements History of hernia repair History of hernia repair History of implantable cardioverter-defibrillator (ICD) insertion Family History Family History Sibling Acute myocardial infarction Congestive heart failure Hypertension Sibling Diabetes mellitus Sibling Family history of heart disease in male family member before age 55 Other Heart disease Social History Social History Social History: The patient lives with his in [place]. Smoking packs per day: 1 Smoking cigarettes per day: 20.0 Years smoked: 5 Smoking pack-years: 5.00 Smoking status: Never smoker Alcohol intake: current Drinks per week: 1 Substance use: never Spiritual care concerns: No Exam Narrative: Exam Narrative: APPEARANCE: No acute distress, nontoxic, resting in bed EYES: PERRL HEENT: Normocephalic, atraumatic, OMM Neck: Supple no midline tenderness palpation for range of motion without pain RESPIRATORY: No respiratory distress Clear to auscultation bilaterally with no rhonchi wheezing or rales. CARDIOVASCULAR: Regular rate and rhythm without murmurs rubs or gallops. ABDOMINAL: Soft, nontender, nondistended, no rebound or guarding MUSCULOSKELETAl: Moves all extremities. No clubbing, cyanosis 3+ edema the bilateral lower extremities, palpation left lateral hip pain with flexion of the hip no tenderness left knee or ankle no tenderness of the bilateral upper extremities and the right lower extremity bilateral dorsalis pedis pulse 2+ NEURO: Awake and alert x 3 Following commands, speech normal, no focal deficits SKIN:: Warm, dry. No rashes lesions or abrasions
--- NOTE | 2020-10-30 03:27 | PC.NURSE ---
Doppled pedal pulses, marked site with sharpie.
--- NOTE | 2020-10-30 03:43 | PC.NURSE ---
Pt to XY at this time
--- NOTE | 2020-10-30 04:08 | PC.NURSE ---
Pt aware of need for urine sample, urinal at bedside.
[2020-10-30 04:33] LABS: Basophils Percent Auto 0.4 % (0.2-1.2); Hematocrit 45.2 % (42.0-52.0); Immature Granulocyte Absolute 0.06 K/mm3 (0.00-0.031); Immature Granulocyte Percent A 0.7 % (0-0.5); Immature Platelet Fraction Pct 2.5 % (0.9-11.2); Lymphocytes Absolute Auto 0.51 K/mm3 (0.9-3.2); Lymphocytes Percent Auto 6.3 % (18.3-44.2); Mean Corpuscular HGB Conc 33.2 g/dl (32-36); Mean Corpuscular Hemoglobin 32.6 pg (26-34); Mean Corpuscular Volume 98.3 fl (80-100); Mean Platelet Volume 10.7 fl (7.4-10.4); Monocytes Absolute Auto 0.8 K/mm3 (0.1-0.6); Monocytes Percent Auto 9.6 % (2.6-8.5); Neutrophils Absolute Auto 6.7 K/mm3 (1.3-6.7); Platelet Count Result 143 k/mm3 (150-375); Red Cell Distribution Width 16.8 % (11.5-14.5)
[2020-10-30 04:37] LABS: Add Urine Microscopic? YES; Appearance Urine Cloudy (Clear); Bacteria Urine Trace /hpf; Bilirubin Urine 1+ (Negative); Blood Urine 1+ (Negative); Color Urine Amber (Yellow); Glucose Urine UA Negative (Negative); Hyaline Casts Urine 20-29 /lpf; Ketones Urine Negative (Negative); Leukocyte Esterase Ur Negative LEU/UL (Negative); Mucus Urine Few /lpf; Nitrate Urine Negative (Negative); Protein Urine 3+ mg/dL (Negative); Specific Grav Ur 1.023 (1.001-1.035); Squamous Epithelial Cell Urine Rare /hpf (Few)
[2020-10-30 04:42] LABS: INR 1.4; Prothrombin Time 18.2 Seconds (11.1-14.7)
[2020-10-30 04:43] LABS: Partial Thromboplastin Time 34.3 SECONDS (22.3-36.8)
[2020-10-30 04:44] LABS: Anion Gap 11 mmol/L (8-16); Blood Urea Nitrogen 22 mg/dL (9-20); Calcium 9.1 mg/dL (8.4-10.2); Carbon Dioxide 23 mmol/L (22-30); Chloride 109 mmol/L (98-107); Estimated Glomerular Filt Rate > 60; Glucose 80 mg/dL (75-110); Sodium 143 mmol/L (137-145)
[2020-10-30 04:58] LABS: NT Pro B Type Natriuretic Pept 12500 pg/mL (5-100); Troponin I 0.062 ng/mL (0.000-0.034)
[2020-10-30] MEDS: BUMETANIDE INJ 1 MG/4 ML VIAL IV PUSH (05:44)
--- NOTE | 2020-10-30 06:40 | ADMGEN ---
This patient, Wilton Contreras, was admitted to Medical Room 345-01. Patient/family oriented to hospital policies and general routines including ID bracelet, bed and alarms, visiting hours, pain management, procedures, bathroom and other care routines, personal items, smoking policy, room service/diet, and visiting hours. Information on how to activate the Rapid Response Team has been discussed. Patient/Family are encouraged to report perceived risks to care and to ask questions if they do not understand what they are told or what they should do.
[2020-10-30 09:47] LABS: Troponin I 0.065 ng/mL (0.000-0.034)
[2020-10-30 12:17] LABS: Troponin I 0.062 ng/mL (0.000-0.034)
--- NOTE | 2020-10-30 15:38 | PM.IMHP ---
H&P: HPI History of Present Illness Date/Time: 10/30/20 15:38 Chief Complaint: weakness Narrative: Patient presents to emergency department from home for weakness. Patient states he has been more weak and is subsequently had 2 falls since he fell this evening is unable to get up on his own he denies any injury from fall denies hitting his head or any loss of consciousness. patient states that he supposed to be taking bumetanide for CHF but has not been taking his medication as prescribed. He states he has been taking 2 mg of Bumex daily but is only been taking 0.5 mg or 1 mg for the past 1 to 2 months as he does not like to urinate that much. He does note increased swelling in his legs as well as increased shortness of breath worse with exertion denies any fevers or chills, chest pain, abdominal pain nausea vomiting or any other symptoms patient does note mild left-sided hip pain. Patient states he is followed by Dr. Rivera. he does report woresning sob on exetion. Review of Systems Review of Systems: Narrative: - CONSTITUTIONAL: Denies weight loss, fever and chills. - HEENT: Denies changes in vision and hearing - RESPIRATORY: Denies SOB and cough. reports sob on exertion - CV: Denies palpitations and CP. reports leg swelling - GI: Denies abdominal pain, nausea, vomiting and diarrhea. - : Denies dysuria and urinary frequency. - MSK: Denies myalgia and joint pain. - SKIN: Denies rash and pruritus. - NEUROLOGICAL: Denies headache and syncope. - PSYCHIATRIC: Denies recent changes in mood. Denies anxiety and depression. All systems reviewed & are unremarkable except as noted in HPI and below Constitutional: Constitutional: Reports fatigue and Reports weakness Neurologic: Reports weakness Endocrine: Endocrine: Reports fatigue [facility] Past Medical History Medical History Arthritis Asthma Benign prostate hyperplasia Hypertension Hypertension Mild reactive airways disease Non-ischemic cardiomyopathy Non-ischemic cardiomyopathy Status post ICD insertion. Obstructive sleep apnea on CPAP Obstructive sleep apnea on CPAP Osteoarthritis Surgical History Surgical History History of bilateral hip replacements History of bilateral hip replacements History of hernia repair History of hernia repair History of implantable cardioverter-defibrillator (ICD) insertion Family History Family History Sibling Acute myocardial infarction Congestive heart failure Hypertension Sibling Diabetes mellitus Sibling Family history of heart disease in male family member before age 55 Other Heart disease Social History Social History Social History: The patient lives with his in [place]. Smoking packs per day: 1 Smoking cigarettes per day: 20.0 Years smoked: 5 Smoking pack-years: 5.00 Smoking status: Never smoker Second hand tobacco smoke exposure: No Alcohol intake: current Drinks per week: 1 Substance use: never Substance use type: does not use Other substance usage details: 1 drink of alcohol/month Gender identity (if verbalized by the patient): Male Sexual Orientation (if Verbalized by the Patient): Straight or Heterosexual Spiritual care concerns: No Meds Home Medications and Allergies Home Medications Medication Instructions Recorded Confirmed Type magnesium oxide 400 mg (241.3 mg 400 mg PO Q12HR #60 tablet 09/05/20 10/30/20 Rx magnesium) tablet metoprolol tartrate 25 mg tablet 6.25 mg PO BID 30 Days #60 tablet 09/05/20 10/30/20 Rx potassium chloride 20 mEq 20 meq PO DAILY@0800 #90 tablet 09/29/20 10/30/20 Rx tablet,extended release amiodarone 200 mg PO DAILY 10/30/20 10/30/20 History bumetanide 1 mg PO DAILY 10/30/20 10/30/20 History famotid
[2020-10-30] MEDS: MAGNESIUM OXIDE 400 MG TABLET PO (20:14)
[2020-10-30] MEDS: METOPROLOL TARTRATE 6.25 MG TABLET PO (20:14)
[2020-10-31] VITALS (12 sets, daily range): BP systolic 99–104; BP diastolic 50–59; PULSE 48–69; RESP 16–18; TEMP 36.5–37.3; O2SAT 98–100
[2020-10-31 05:57] LABS: Basophils Percent Auto 0.3 % (0.2-1.2); Eosinophils Percent Auto 0.2 % (0-4.4); Hematocrit 39.9 % (42.0-52.0); Hemoglobin 13.5 g/dL (14.0-18.0); Immature Granulocyte Absolute 0.02 K/mm3 (0.00-0.031); Immature Granulocyte Percent A 0.3 % (0-0.5); Immature Platelet Fraction Pct 3.1 % (0.9-11.2); Lymphocytes Absolute Auto 0.61 K/mm3 (0.9-3.2); Lymphocytes Percent Auto 9.4 % (18.3-44.2); Mean Corpuscular HGB Conc 33.8 g/dl (32-36); Mean Corpuscular Hemoglobin 32.4 pg (26-34); Mean Corpuscular Volume 95.7 fl (80-100); Mean Platelet Volume 10.9 fl (7.4-10.4); Monocytes Absolute Auto 0.9 K/mm3 (0.1-0.6); Neutrophils Percent Auto 76.8 % (45.5-73.1); Platelet Count Result 123 k/mm3 (150-375); Red Blood Count 4.17 M/mm3 (4.6-6.20); Red Cell Distribution Width 16.7 % (11.5-14.5); White Blood Count 6.5 K/mm3 (4.5-10.0)
[2020-10-31 06:09] LABS: Alanine Aminotransferase 18 U/L (4-50); Albumin Level 2.5 g/dL (3.5-5.1); Alkaline Phosphatase 63 U/L (38-126); Anion Gap 7 mmol/L (8-16); Aspartate Amino Transferase 46 U/L (17-59); Blood Urea Nitrogen 21 mg/dL (9-20); Calcium 8.1 mg/dL (8.4-10.2); Carbon Dioxide 27 mmol/L (22-30); Chloride 108 mmol/L (98-107); Estimated CRCL calculation 62 ml/min; Estimated Glomerular Filt Rate > 60; Glucose 83 mg/dL (75-110); Potassium 3.8 mmol/L (3.4-5.0); Sodium 142 mmol/L (137-145)
[2020-10-31] MEDS: POTASSIUM CHLORIDE 20 MEQ TABLET.ER PO (08:01)
[2020-10-31] MEDS: MAGNESIUM OXIDE 400 MG TABLET PO ×2 (08:01→20:18)
[2020-10-31] MEDS: ENOXAPARIN 30 MG/0.3 ML SYRINGE SUB-Q (08:01)
[2020-10-31] MEDS: METOPROLOL TARTRATE 6.25 MG TABLET PO (08:01)
--- NOTE | 2020-10-31 08:48 | PM.CNCAR ---
Assessment and Plan Assessment and plan (1) Weakness: Code(s): R53.1 - Weakness Status: Acute Assessment and Plan: Could be related to beta blockade. He would benefit from being on it for history of V. Fib and NICM, but he may not tolerate it. Will discontinue Metoprolol. His BP is soft also. (2) NICM (nonischemic cardiomyopathy): Code(s): I42.8 - Other cardiomyopathies Status: Acute Assessment and Plan: Continue Amiodarone for history of V. fib. He is not on Carloz Inh or ARB due to low BP and intolerant of them. Continue Bumetanide. (3) Edema of both legs: Code(s): R60.0 - Localized edema Status: Acute Assessment and Plan: Improved. He has lymphedema also. (4) Elevated troponin: Code(s): R77.8 - Other specified abnormalities of plasma proteins Status: Acute Assessment and Plan: Slightly elevated and peaked, likely not related to ACS and could be due to known NICM. (5) ICD (implantable cardioverter-defibrillator) battery depletion: Code(s): Z45.02 - Encounter for adjustment and management of automatic implantable cardiac defibrillator Status: Acute History of Present Illness History of Present Illness Consult date/time: 10/31/20 08:48 Reason for consult: Weakness. Patient is a 70 yr old man who is my regular cardiology patient presents to hospital for weakness. He has a history of Non-ICM (intolerant of Toprol and Coreg due to fatigue/weakness, Losartan due to itching/edema) with [employer] Gus ICD to prevent sudden cardiac arrest, hypertension, LAURIE on CPAP, obesity, VF episodes treated by ICD. Reports that for last 2 days he had extreme weakness and mainly in his legs. He could not stand up one night and had to call fire dept. They got him up but then he could not stand or get up on his own so he was brought to ER. At last hospitalization due to having V. Fib, he was started on Metoprolol very low dose 6.25 mg BID and seemed to have tolerated it OK even though it is known he does not tolerate beta blockers due to weakness. Has not had any shocks from ICD since leaving hospital. He is eating better while prior to going to hospital he was eating 1-2 bites only. No symptoms of chest pain or sob. Prior to this he was able to walk 1 block then he has SALMON but he can push through and go another block. He has edema of legs that is moderate amount and worse at end of the day. Cardiovascular Procedures [employer] Service Advisor:: Cath (Dr. Smith: normal coronaries; severe global systolic dysfunction with EF 25%.) - 11/18/2016 Echo/MUGA:: 11/15/19 Echo: EF 20-25%, severe LVE, RV dysfunction based on TAPSE 1.3 cm, severe biatrial enlargement, mild-mod MR/TR. 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 07/20/20 EKG: SInus bradycardia with first degree AV block at 55 bpm, borderline T wave in anterolateral leads, QTc 309 ms. 07/14/20 interrogation in hospital: 07/13/20 at 14:26 had VF lasted 32 seconds, treated with ATP; at 15:07 had VF lasted 21 seconds treated with ATP and shock. Devices ([employer] Gus ICD single lead placement with perforation. Went to [facility] and had revision on 02/03/[address] Peterson with CT surgery backup.) - 01/23/2017 Stress Tests:: 07/14/20 Venous duplex: No DVT of both legs. Sleep Study (LAURIE.) - 05/23/2015 MPI (Lexiscan myoview: Large chronic m
[2020-10-31] MEDS: BUMETANIDE 1 MG TABLET PO (10:02)
[2020-10-31 15:26] LABS: Add Urine Microscopic? YES; Appearance Urine Cloudy (Clear); Bacteria Urine Trace /hpf; Bilirubin Urine Negative (Negative); Blood Urine 3+ (Negative); Color Urine Yellow (Yellow); Glucose Urine UA Negative (Negative); Hyaline Casts Urine 20-29 /lpf; Ketones Urine Negative (Negative); Leukocyte Esterase Ur Negative LEU/UL (Negative); Mucus Urine Rare /lpf; Nitrate Urine Negative (Negative); Protein Urine Negative (Negative); RBC Urine >75 /hpf (0-2); Squamous Epithelial Cell Urine Rare /hpf (Few); Urobilinogen Urine Negative mg/dL (<2.0); WBC Urine 0-3 /hpf
--- NOTE | 2020-10-31 16:07 | PM.IMPN ---
Progress Note: A&P Additional Plan # generalized weakenss: PT/OT # Fall injury : CT head negative. no other injury noted. # elevated tronponin: flat not indicative of ACS. likely from CHF # acute on chronic CHF: leg swelling. cxr okay. non compliance wiht medications. given bumetanide 1 mg iv in [facility] ed. will resume gentle diuresis. # elvated BNP: wosenign. # HTN # mild thrombocytopenia: chronic. # non ischemic cardiomyopathy: cath 2017 with normal coronaries # s/p ICD insertion # LAURIE on CPAP # hx of vfib arrest on amiodarone. # DVT proph: lvoenox 10/31/20 16:07 Patient is 70-year-old male admitted with generalized weakness patient has history ventricle fibrillation, nonischemic cardiomyopathy, ICD and treated with metoprolol, patient is unable to tolerate the beta-reji makes him tired and weak was seen by Cardiology and hold, beta-reji. Patient appears slightly volume overload and being diuresed bumetanide Will continue to monitor have PT OT evaluate the patient and further recommendation to follow Subjective Date/time seen: 10/31/20 16:07 Patient is 70-year-old male admitted with generalized weakness patient has history ventricle fibrillation, nonischemic cardiomyopathy, ICD and treated with metoprolol, patient is unable to tolerate the beta-reji makes him tired and weak was seen by Cardiology and hold, beta-reji. Patient appears slightly volume overload and being diuresed bumetanide Will continue to monitor have PT OT evaluate the patient and further recommendation to follow Review of Systems Review of Systems: All systems reviewed & are unremarkable except as noted in HPI and below Exam Narrative: Exam Narrative: Elderly moderately obese Patient is comfortable, NAD HEENT: eyes are clear and none icteric LUNGS:CTA HEART: RR S1S2 ABD: BS+, Soft and nontender Lower extremities: no edema SKIN: nonjaundiced Neuro: grossly intact. Objective Data Vital Signs Vital Signs: Vital Signs - 24 hr 10/30/20 20:00 10/30/20 20:14 10/31/20 00:00 Temperature 98.7 F Pulse Rate 55 L 57 L 48 L Respiratory Rate 18 Blood Pressure 99/80 L Pulse Oximetry 98 10/31/20 04:00 10/31/20 06:09 10/31/20 08:00 Temperature 97.7 F Pulse Rate 49 L 52 L 57 L Respiratory Rate 16 Blood Pressure 99/50 L Pulse Oximetry 100 10/31/20 08:01 10/31/20 10:02 10/31/20 12:00 Temperature Pulse Rate 56 L 48 L 53 L Respiratory Rate Blood Pressure Pulse Oximetry 10/31/20 14:00 Temperature 97.7 F Pulse Rate 61 Respiratory Rate 18 Blood Pressure 100/51 L Pulse Oximetry 100 Intake/Output Intake/Output: Intake & Output 10/28/20 10/29/20 10/30/20 10/31/20 23:59 23:59 23:59 23:59 Intake Total 480 930 Output Total 600 1100 Balance -120 -170 Meds/Results Medications: Active Medications Generic Name Dose Route Start Last Admin Trade Name Abranq PRN Reason Stop Dose Admin Amiodarone HCl 200 mg 10/31/20 09:00 10/31/20 10:02 Amiodarone Hcl 200 Mg Tablet PO Not Given DAILY GAVIOTA Bumetanide 1 mg 10/31/20 09:00 10/31/20 10:02 Bumetanide 1 Mg Tablet PO 1 mg DAILY GAVIOTA Administration Enoxaparin Sodium 30 mg 10/31/20 09:00 10/31/20 08:01 Enoxaparin 30 Mg/0.3 Ml Syringe SUB-Q 30 mg DAILY GAVIOTA Administration Magnesium Oxide 400 mg 10/30/20 21:00 10/31/20 08:01 Magnesium Oxide 400 Mg Tablet PO 400 mg Q12HR GAVIOTA Administration Potassium Chloride 20 meq 10/31/20 08:00 10/31/20 08:01 Potassium Chloride 20 Meq Tablet.Er PO 20 meq DAILY@0800 GAVIOTA Administration Radiology Results: ITS Impressions Chest X-Ray 10/30/20 06:42 IMPRESSION: Cardiomegaly. Hip/Pelvis X-Ray 10/30/20 06:43 IMPRESSION: Intact arthroplasties. Head CT 10/30/20 06:50 IMPRESSION: 1. 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 2. Chronic age related findings. 3. Right brow swelling. Labs Labs: Laboratory Results - last 24 hr
[2020-11-01] VITALS (10 sets, daily range): BP systolic 96–117; BP diastolic 56–62; PULSE 57–68; RESP 16–18; TEMP 36.3–37.2; O2SAT 96–100
--- NOTE | 2020-11-01 07:46 | PM.PNCARD ---
Progress Note: A&P Assessment and Plan (1) Weakness: Code(s): R53.1 - Weakness Status: Acute Assessment and Plan: Could be related to beta blockade. He would benefit from being on it for history of V. Fib and NICM, but he may not tolerate it. Discontinued Metoprolol 11/01/20. His BP is soft also. Needs physical therapy and rehab to restrengthen. (2) NICM (nonischemic cardiomyopathy): Code(s): I42.8 - Other cardiomyopathies Status: Acute Assessment and Plan: Continue Amiodarone for history of V. fib. He is not on Carloz Inh or ARB due to low BP and intolerant of them. Continue Bumetanide. (3) Edema of both legs: Code(s): R60.0 - Localized edema Status: Acute Assessment and Plan: Improved. He has lymphedema also. (4) Elevated troponin: Code(s): R77.8 - Other specified abnormalities of plasma proteins Status: Acute Assessment and Plan: Slightly elevated and peaked, likely not related to ACS and could be due to known NICM. (5) ICD (implantable cardioverter-defibrillator) battery depletion: Code(s): Z45.02 - Encounter for adjustment and management of automatic implantable cardiac defibrillator Status: Acute Subjective Date/time seen: 11/01/20 07:46 Reports generalized weakness. No chest pain or sob. Exam Const: General: cooperative, healthy appearing and comfortable Resp: Auscultation: clear to auscultation bilaterally, no crackles, no rales, no rhonchi and no wheezes Cardio: Jugular venous distension: no JVD Rate: regular rate Rhythm: regular rhythm Heart sounds: no murmurs GI: GI Palp: No abdominal tenderness and Yes Soft to palpation Neuro: General: oriented to person, oriented to place and oriented to time Extrem: Right lower extremity: edema Left lower extremity: edema Other: Mild-mod edema of both legs Objective Data Vital Signs Vital Signs: Vital Signs - 24 hr 10/31/20 08:00 10/31/20 08:01 10/31/20 10:02 Temperature Pulse Rate 57 L 56 L 48 L Respiratory Rate Blood Pressure Pulse Oximetry 10/31/20 12:00 10/31/20 14:00 10/31/20 16:00 Temperature 97.7 F Pulse Rate 53 L 61 63 Respiratory Rate 18 Blood Pressure 100/51 L Pulse Oximetry 100 10/31/20 20:00 10/31/20 20:38 10/31/20 22:40 Temperature 99.2 F Pulse Rate 69 58 L Respiratory Rate 16 Blood Pressure 104/59 L Pulse Oximetry 99 98 11/01/20 00:00 11/01/20 04:00 11/01/20 05:38 Temperature 97.4 F L Pulse Rate 57 L 62 63 Respiratory Rate 16 Blood Pressure 96/56 L Pulse Oximetry 98 Intake/Output Intake/Output: Intake & Output 10/29/20 10/30/20 10/31/20 11/01/20 23:59 23:59 23:59 23:59 Intake Total 480 1170 200 Output Total 600 1850 1025 Balance -089 -919 -829 Meds/Results Medications: Active Medications Generic Name Dose Route Start Last Admin Trade Name Freq PRN Reason Stop Dose Admin Amiodarone HCl 200 mg 10/31/20 09:00 10/31/20 10:02 Amiodarone Hcl 200 Mg Tablet PO Not Given DAILY COUNT INCLUDES THE [facility] Bumetanide 1 mg 10/31/20 09:00 10/31/20 10:02 Bumetanide 1 Mg Tablet PO 1 mg DAILY GAVIOTA Administration Enoxaparin Sodium 30 mg 10/31/20 09:00 10/31/20 08:01 Enoxaparin 30 Mg/0.3 Ml Syringe SUB-Q 30 mg DAILY GAVIOTA Administration Magnesium Oxide 400 mg 10/30/20 21:00 10/31/20 20:18 Magnesium Oxide 400 Mg Tablet PO 400 mg Q12HR GAVIOTA Administration Potassium Chloride 20 meq 10/31/20 08:00 10/31/20 08:01 Potassium Chloride 20 Meq Tablet.Er PO 20 meq DAILY@0800 GAVIOTA Administration Radiology Results: ITS Impressions Chest X-Ray 10/30/20 06:42 IMPRESSION: Cardiomegaly. Hip/Pelvis X-Ray 10/30/20 06:43 IMPRESSION: Intact arthroplasties. Head CT 10/30/20 06:50 IMPRESSION: 1. 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 2. Chronic age related findings. 3. Right brow swelling. Labs Labs: Laboratory Results - las
[2020-11-01] MEDS: AMIODARONE HCL 200 MG TABLET PO (08:10)
[2020-11-01] MEDS: BUMETANIDE 1 MG TABLET PO (08:10)
[2020-11-01] MEDS: POTASSIUM CHLORIDE 20 MEQ TABLET.ER PO (08:10)
[2020-11-01] MEDS: MAGNESIUM OXIDE 400 MG TABLET PO ×2 (08:10→20:02)
[2020-11-01 09:05] LABS: Hematocrit 38.8 % (42.0-52.0); Immature Platelet Fraction Pct 3.6 % (0.9-11.2); Mean Corpuscular HGB Conc 33.5 g/dl (32-36); Mean Corpuscular Hemoglobin 32.3 pg (26-34); Mean Corpuscular Volume 96.3 fl (80-100); Platelet Count Result 120 k/mm3 (150-375); Red Blood Count 4.03 M/mm3 (4.6-6.20); Red Cell Distribution Width 16.5 % (11.5-14.5); White Blood Count 5.2 K/mm3 (4.5-10.0)
[2020-11-01] MEDS: ENOXAPARIN 30 MG/0.3 ML SYRINGE SUB-Q (09:07)
[2020-11-01 09:13] LABS: Anion Gap 6 mmol/L (8-16); Blood Urea Nitrogen 22 mg/dL (9-20); Calcium 7.8 mg/dL (8.4-10.2); Carbon Dioxide 29 mmol/L (22-30); Chloride 106 mmol/L (98-107); Estimated CRCL calculation 73 ml/min; Estimated Glomerular Filt Rate > 60; Glucose 85 mg/dL (75-110); Potassium 3.6 mmol/L (3.4-5.0); Sodium 141 mmol/L (137-145)
--- NOTE | 2020-11-01 15:52 | PM.IMPN ---
Progress Note: A&P Additional Plan # generalized weakenss: PT/OT # Fall injury : CT head negative. no other injury noted. # elevated tronponin: flat not indicative of ACS. likely from CHF # acute on chronic CHF: leg swelling. cxr okay. non compliance wiht medications. given bumetanide 1 mg iv in [facility] ed. will resume gentle diuresis. # elvated BNP: wosenign. # HTN # mild thrombocytopenia: chronic. # non ischemic cardiomyopathy: cath 2017 with normal coronaries # s/p ICD insertion # LAURIE on CPAP # hx of vfib arrest on amiodarone. # DVT proph: lvoenox 11/01/20 15:52 10/31 Patient is 70-year-old male admitted with generalized weakness patient has history ventricle fibrillation, nonischemic cardiomyopathy, ICD and treated with metoprolol, patient is unable to tolerate the beta-reji makes him tired and weak was seen by Cardiology and hold, beta-reji. Patient appears slightly volume overload and being diuresed bumetanide Will continue to monitor have PT OT evaluate the patient and further recommendation to follow. 11/01 I saw today patient working with physical therapy and states is feeling little more stronger than yesterday, he denies any chest pain shortness of breath palpitation, patient was seen by his Cardiology recommended to hold beta-reji as patient is unable to tolerate will continue amiodarone to control ventricle fibrillation, will continue PT OT, and will benefit from acute rehab, Subjective Date/time seen: 11/01/20 15:52 10/31 Patient is 70-year-old male admitted with generalized weakness patient has history ventricle fibrillation, nonischemic cardiomyopathy, ICD and treated with metoprolol, patient is unable to tolerate the beta-reji makes him tired and weak was seen by Cardiology and hold, beta-reji. Patient appears slightly volume overload and being diuresed bumetanide Will continue to monitor have PT OT evaluate the patient and further recommendation to follow. 11/01 I saw today patient working with physical therapy and states is feeling little more stronger than yesterday, he denies any chest pain shortness of breath palpitation, patient was seen by his Cardiology recommended to hold beta-reji as patient is unable to tolerate will continue amiodarone to control ventricle fibrillation, will continue PT OT, and will benefit from acute rehab, Review of Systems Review of Systems: All systems reviewed & are unremarkable except as noted in HPI and below Exam Narrative: Exam Narrative: Elderly moderately obese Patient is comfortable, NAD HEENT: eyes are clear and none icteric LUNGS:CTA HEART: RR S1S2 ABD: BS+, Soft and nontender Lower extremities: no edema SKIN: nonjaundiced Neuro: grossly intact. Objective Data Vital Signs Vital Signs: Vital Signs - 24 hr 10/31/20 16:00 10/31/20 20:00 10/31/20 20:38 Temperature 99.2 F Pulse Rate 63 69 58 L Respiratory Rate 16 Blood Pressure 104/59 L Pulse Oximetry 99 10/31/20 22:40 11/01/20 00:00 11/01/20 04:00 Temperature Pulse Rate 57 L 62 Respiratory Rate Blood Pressure Pulse Oximetry 98 11/01/20 05:38 11/01/20 08:00 11/01/20 08:10 Temperature 97.4 F L Pulse Rate 63 66 63 Respiratory Rate 16 Blood Pressure 96/56 L Pulse Oximetry 98 11/01/20 12:00 11/01/20 14:00 Temperature 98.2 F Pulse Rate 60 68 Respiratory Rate 16 Blood Pressure 117/62 Pulse Oximetry 96 Intake/Output Intake/Output: Intake & Output 10/29/20 10/30/20 10/31/20 11/01/20 23:59 23:59 23:59 23:59 Intake Total 480 1170 680 Output Total 600 1850 1175 Balance -120 -680 -495 Meds/Results Medications: Active Medications Generic Name Dose Route Start Last Admin Trade Name Freq PRN Reason Stop Dose Admin Amiodarone HCl 200 mg 10/31/20 09:00 11/01/20 08:10 Amiodarone Hcl 200 Mg Tablet PO 200 mg DAILY GAVIOTA Administration Bumetanide 1 mg 10/31/20 09:00 11/01/20 08:10 Bumetanide 1 Mg Tablet PO 1 mg DAILY
[2020-11-02] VITALS (11 sets, daily range): BP systolic 107–128; BP diastolic 57–75; PULSE 60–73; RESP 15–18; TEMP 35.9–37.3; O2SAT 97–100
[2020-11-02 06:09] LABS: Hematocrit 37.3 % (42.0-52.0); Hemoglobin 12.7 g/dL (14.0-18.0); Immature Platelet Fraction Pct 3.2 % (0.9-11.2); Mean Corpuscular Hemoglobin 32.6 pg (26-34); Mean Corpuscular Volume 95.9 fl (80-100); Mean Platelet Volume 11.3 fl (7.4-10.4); Platelet Count Result 128 k/mm3 (150-375); Red Blood Count 3.89 M/mm3 (4.6-6.20); White Blood Count 4.7 K/mm3 (4.5-10.0)
[2020-11-02 06:10] LABS: Anion Gap 3 mmol/L (8-16); Blood Urea Nitrogen 21 mg/dL (9-20); Calcium 7.9 mg/dL (8.4-10.2); Carbon Dioxide 30 mmol/L (22-30); Chloride 106 mmol/L (98-107); Estimated CRCL calculation 79 ml/min; Estimated Glomerular Filt Rate > 60; Glucose 85 mg/dL (75-110); Potassium 3.5 mmol/L (3.4-5.0); Sodium 139 mmol/L (137-145)
[2020-11-02] MEDS: POTASSIUM CHLORIDE 20 MEQ TABLET PO (07:00)
--- NOTE | 2020-11-02 08:16 | PM.PNCARD ---
Progress Note: A&P Assessment and Plan (1) Weakness: Code(s): R53.1 - Weakness Status: Acute Assessment and Plan: Could be related to beta blockade. He would benefit from being on it for history of V. Fib and NICM, but he may not tolerate it. Discontinued Metoprolol 11/01/20. His BP is soft also. Needs physical therapy and rehab to restrengthen. Since being off Metoprolol, his strength is beginning to return. Will sign off. Please call with any questions. (2) NICM (nonischemic cardiomyopathy): Code(s): I42.8 - Other cardiomyopathies Status: Acute Assessment and Plan: Continue Amiodarone for history of V. fib. He is not on Carloz Inh or ARB due to low BP and intolerant of them. Continue Bumetanide. Will give additional KCl 20 meq x1. (3) Edema of both legs: Code(s): R60.0 - Localized edema Status: Acute Assessment and Plan: Improved. He has lymphedema also. (4) Elevated troponin: Code(s): R77.8 - Other specified abnormalities of plasma proteins Status: Acute Assessment and Plan: Slightly elevated and peaked, likely not related to ACS and could be due to known NICM. (5) ICD (implantable cardioverter-defibrillator) battery depletion: Code(s): Z45.02 - Encounter for adjustment and management of automatic implantable cardiac defibrillator Status: Acute Subjective Date/time seen: 11/02/20 08:16 Reports weakness that is somewhat improving. No chest pain or sob. Exam Const: General: cooperative, healthy appearing and comfortable Resp: Auscultation: clear to auscultation bilaterally, no crackles, no rales, no rhonchi and no wheezes Cardio: Jugular venous distension: no JVD Rate: regular rate Rhythm: regular rhythm Heart sounds: no murmurs GI: GI Palp: No abdominal tenderness and Yes Soft to palpation Neuro: General: oriented to person, oriented to place and oriented to time Extrem: Right lower extremity: edema Left lower extremity: edema Other: Mild-mod edema of both legs Objective Data Vital Signs Vital Signs: Vital Signs - 24 hr 11/01/20 12:00 11/01/20 14:00 11/01/20 16:00 Temperature 98.2 F Pulse Rate 60 68 57 L Respiratory Rate 16 Blood Pressure 117/62 Pulse Oximetry 96 11/01/20 20:00 11/01/20 20:11 11/02/20 00:00 Temperature 98.9 F Pulse Rate 65 64 66 Respiratory Rate 18 Blood Pressure 116/62 Pulse Oximetry 100 11/02/20 04:00 11/02/20 05:45 Temperature 98.8 F Pulse Rate 64 62 Respiratory Rate 16 Blood Pressure 107/57 L Pulse Oximetry 97 Intake/Output Intake/Output: Intake & Output 10/30/20 10/31/20 11/01/20 11/02/20 23:59 23:59 23:59 23:59 Intake Total 480 1170 1610 1000 Output Total 600 1850 1825 700 Balance -120 680 -215 300 Meds/Results Medications: Active Medications Generic Name Dose Route Start Last Admin Trade Name Freq PRN Reason Stop Dose Admin Amiodarone HCl 200 mg 10/31/20 09:00 11/01/20 08:10 Amiodarone Hcl 200 Mg Tablet PO 200 mg DAILY GAVIOTA Administration Bumetanide 1 mg 10/31/20 09:00 11/01/20 08:10 Bumetanide 1 Mg Tablet PO 1 mg DAILY GAVIOTA Administration Enoxaparin Sodium 30 mg 10/31/20 09:00 11/01/20 09:07 Enoxaparin 30 Mg/0.3 Ml Syringe SUB-Q 30 mg DAILY GAVIOTA Administration Magnesium Oxide 400 mg 10/30/20 21:00 11/01/20 20:02 Magnesium Oxide 400 Mg Tablet PO 400 mg Q12HR GAVIOTA Administration Potassium Chloride 20 meq 10/31/20 08:00 11/01/20 08:10 Potassium Chloride 20 Meq Tablet.Er PO 20 meq DAILY@0800 GAVIOTA Administration Radiology Results: ITS Impressions Chest X-Ray 10/30/20 06:42 IMPRESSION: Cardiomegaly. Hip/Pelvis X-Ray 10/30/20 06:43 IMPRESSION: Intact arthroplasties. Head CT 10/30/20 06:50 IMPRESSION: 1. 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 2. Chronic age related findings. 3. Right brow swelling. Labs Labs: Laboratory Results - l
[2020-11-02] MEDS: AMIODARONE HCL 200 MG TABLET PO (09:18)
[2020-11-02] MEDS: BUMETANIDE 1 MG TABLET PO (09:20)
[2020-11-02] MEDS: ENOXAPARIN 30 MG/0.3 ML SYRINGE SUB-Q (09:20)
[2020-11-02] MEDS: POTASSIUM CHLORIDE 20 MEQ TABLET.ER PO (09:20)
[2020-11-02] MEDS: MAGNESIUM OXIDE 400 MG TABLET PO ×2 (09:20→20:08)
--- NOTE | 2020-11-02 16:39 | PM.IMPN ---
Progress Note: A&P Additional Plan # generalized weakenss: PT/OT # Fall injury : CT head negative. no other injury noted. # elevated tronponin: flat not indicative of ACS. likely from CHF # acute on chronic CHF: leg swelling. cxr okay. non compliance wiht medications. given bumetanide 1 mg iv in [facility] ed. will resume gentle diuresis. # elvated BNP: wosenign. # HTN # mild thrombocytopenia: chronic. # non ischemic cardiomyopathy: cath 2017 with normal coronaries # s/p ICD insertion # LAURIE on CPAP # hx of vfib arrest on amiodarone. # DVT proph: lvoenox 11/02/20 16:39 10/31 Patient is 70-year-old male admitted with generalized weakness patient has history ventricle fibrillation, nonischemic cardiomyopathy, ICD and treated with metoprolol, patient is unable to tolerate the beta-reji makes him tired and weak was seen by Cardiology and hold, beta-reji. Patient appears slightly volume overload and being diuresed bumetanide Will continue to monitor have PT OT evaluate the patient and further recommendation to follow. 11/01 I saw today patient working with physical therapy and states is feeling little more stronger than yesterday, he denies any chest pain shortness of breath palpitation, patient was seen by his Cardiology recommended to hold beta-reji as patient is unable to tolerate will continue amiodarone to control ventricle fibrillation, will continue PT OT, and will benefit from acute rehab. 11/02 today patient is feeling better and little stronger than he had been patient is seen his Cardiology patient remains clinically stable he is off beta-reji as he unable to tolerate his BP is soft will continue amiodarone to control his ventricle fibrillation and being gently diuresed with bumetanide as patient cannot be on ANGEL-inhibitor or ARB, patient remains clinically stable, cardiology has signed off will discharge the patient tomorrow. Patient had been complaining of left hip he had a x-ray of the hip is no acute fracture. Subjective Date/time seen: 11/02/20 16:39 10/31 Patient is 70-year-old male admitted with generalized weakness patient has history ventricle fibrillation, nonischemic cardiomyopathy, ICD and treated with metoprolol, patient is unable to tolerate the beta-reji makes him tired and weak was seen by Cardiology and hold, beta-reji. Patient appears slightly volume overload and being diuresed bumetanide Will continue to monitor have PT OT evaluate the patient and further recommendation to follow. 11/01 I saw today patient working with physical therapy and states is feeling little more stronger than yesterday, he denies any chest pain shortness of breath palpitation, patient was seen by his Cardiology recommended to hold beta-reji as patient is unable to tolerate will continue amiodarone to control ventricle fibrillation, will continue PT OT, and will benefit from acute rehab. 11/02 today patient is feeling better and little stronger than he had been patient is seen his Cardiology patient remains clinically stable he is off beta-reji as he unable to tolerate his BP is soft will continue amiodarone to control his ventricle fibrillation and being gently diuresed with bumetanide as patient cannot be on ANGEL-inhibitor or ARB, patient remains clinically stable, cardiology has signed off will discharge the patient tomorrow. Patient had been complaining of left hip he had a x-ray of the hip is no acute fracture. Review of Systems Review of Systems: All systems reviewed & are unremarkable except as noted in HPI and below Exam Narrative: Exam Narrative: Elderly moderately obese Patient is comfortable, NAD HEENT: eyes are clear and none icteric LUNGS:CTA HEART: RR S1S2 ABD: BS+, Soft and nontender Lower extremities: no edema SKIN: nonjaundiced Neuro: grossly intact. Objective Data Vital Signs Vital Signs: Vital Signs - 24 hr 11/01/20 20:00 11/01/20 20:11 11/02/20 00:00 Temperature 98.9 F Pulse Rate 65 64 66
[2020-11-03] VITALS (9 sets, daily range): BP systolic 100–123; BP diastolic 50–73; PULSE 60–73; RESP 15–18; TEMP 35.9–37.1; O2SAT 98–99
[2020-11-03 06:08] LABS: Hematocrit 39.2 % (42.0-52.0); Hemoglobin 13.1 g/dL (14.0-18.0); Immature Platelet Fraction Pct 3.2 % (0.9-11.2); Mean Corpuscular HGB Conc 33.4 g/dl (32-36); Mean Corpuscular Hemoglobin 32.3 pg (26-34); Mean Corpuscular Volume 96.8 fl (80-100); Mean Platelet Volume 10.9 fl (7.4-10.4); Platelet Count Result 142 k/mm3 (150-375); Red Blood Count 4.05 M/mm3 (4.6-6.20); Red Cell Distribution Width 15.8 % (11.5-14.5); White Blood Count 5.3 K/mm3 (4.5-10.0)
[2020-11-03 06:37] LABS: Anion Gap 4 mmol/L (8-16); Blood Urea Nitrogen 18 mg/dL (9-20); Calcium 7.5 mg/dL (8.4-10.2); Carbon Dioxide 28 mmol/L (22-30); Chloride 107 mmol/L (98-107); Estimated CRCL calculation 98 ml/min; Estimated Glomerular Filt Rate > 60; Glucose 83 mg/dL (75-110); Potassium 3.6 mmol/L (3.4-5.0); Sodium 139 mmol/L (137-145)
--- NOTE | 2020-11-03 08:45 | PM.DS ---
DS: Admitting Diagnosis Admitting Diagnosis Admitting Diagnosis: Chief Complaint: weakness DS: Discharge Diagnosis Discharge Diagnosis (1) Weakness: Code(s): R53.1 - Weakness Status: Acute Assessment and Plan: # generalized weakenss: PT/OT # Fall injury : CT head negative. no other injury noted. # elevated tronponin: flat not indicative of ACS. likely from CHF # acute on chronic CHF: leg swelling. cxr okay. non compliance wiht medications. given bumetanide 1 mg iv in [facility] ed. will resume gentle diuresis. # elvated BNP: wosenign. # HTN # mild thrombocytopenia: chronic. # non ischemic cardiomyopathy: cath 2017 with normal coronaries # s/p ICD insertion # LAURIE on CPAP # hx of vfib arrest on amiodarone. (2) Elevated troponin: Code(s): R77.8 - Other specified abnormalities of plasma proteins Status: Acute (3) CHF (congestive heart failure): Code(s): I50.9 - Heart failure, unspecified Status: Acute (4) Hypertension: Code(s): I10 - Essential (primary) hypertension Status: Acute DS: Summary Hospital Course Reason for hospitalization: Chief Complaint: weakness Narrative: Patient presents to emergency department from home for weakness. Patient states he has been more weak and is subsequently had 2 falls since he fell this evening is unable to get up on his own he denies any injury from fall denies hitting his head or any loss of consciousness. patient states that he supposed to be taking bumetanide for CHF but has not been taking his medication as prescribed. He states he has been taking 2 mg of Bumex daily but is only been taking 0.5 mg or 1 mg for the past 1 to 2 months as he does not like to urinate that much. He does note increased swelling in his legs as well as increased shortness of breath worse with exertion denies any fevers or chills, chest pain, abdominal pain nausea vomiting or any other symptoms patient does note mild left-sided hip pain. Patient states he is followed by Dr. Rivera. he does report woresning sob on exetion. Hospital Course: 10/31 Patient is 70-year-old male admitted with generalized weakness patient has history ventricle fibrillation, nonischemic cardiomyopathy, ICD and treated with metoprolol, patient is unable to tolerate the beta-reji makes him tired and weak was seen by Cardiology and hold, beta-reji. Patient appears slightly volume overload and being diuresed bumetanide Will continue to monitor have PT OT evaluate the patient and further recommendation to follow. 11/01 I saw today patient working with physical therapy and states is feeling little more stronger than yesterday, he denies any chest pain shortness of breath palpitation, patient was seen by his Cardiology recommended to hold beta-reji as patient is unable to tolerate will continue amiodarone to control ventricle fibrillation, will continue PT OT, and will benefit from acute rehab. 11/02 today patient is feeling better and little stronger than he had been patient is seen his Cardiology patient remains clinically stable he is off beta-reji as he unable to tolerate his BP is soft will continue amiodarone to control his ventricle fibrillation and being gently diuresed with bumetanide as patient cannot be on ANGEL-inhibitor or ARB, patient remains clinically stable, cardiology has signed off will discharge the patient tomorrow. Patient had been complaining of left hip he had a x-ray of the hip is no acute fracture. today erasmo is feeling and clinically stable, seen by his escort blind, will dischage today to SNF for more rehab Status at Discharge Functional status at discharge: uses cane/walker Overall status at discharge: patient is back to baseline Time Spent with Patient Time attestation: Total time spent providing and/or coordinating discharge services: Patient was seen and examined at the time of the discharge Condition at discharge is stable Code status: Full code. Time spent preparing
[2020-11-03] MEDS: POTASSIUM CHLORIDE 20 MEQ TABLET.ER PO (10:21)
[2020-11-03] MEDS: AMIODARONE HCL 200 MG TABLET PO (10:22)
[2020-11-03] MEDS: ENOXAPARIN 30 MG/0.3 ML SYRINGE SUB-Q (10:24)
[2020-11-03] MEDS: BUMETANIDE 1 MG TABLET PO (10:24)
[2020-11-03] MEDS: MAGNESIUM OXIDE 400 MG TABLET PO (10:26)
[2020-11-03 10:27] LABS: EDCOVIDSCREEN Negative (Negative)
--- NOTE | 2020-11-03 13:19 | PC.NURSE ---
On 11/03/20, the student, [ Valentin Boone], provided care and completed [facility] documentation on this patient. I have reviewed the student's documentation and agree with the findings.
--- NOTE | 2020-11-03 14:18 | PCPTNOTE ---
Assisted [employer] with treatment this date to assess gait with WW, patient MIN A once standing with continuous verbal cues for technique and safety with device, added to POC this date.
[2020-11-03 19:50] LABS: SARS-CoV-2 RNA PCR Negative
== END 2020-11-03 14:18 | DRG 293 ==
LOC: ANHED 05:27 → ANH3MED 07:41
PROVIDERS: Family Medicine; Admitting Provider Internal Medicine; Emergency Provider Emergency Medicine; PCP Internal Medicine; Visit Provider Internal Medicine
DX: I11.0 Hypertensive heart disease with heart failure (principal); Z20.822 Contact with and (suspected) exposure to COVID-19; I50.23 Acute on chronic systolic (congestive) heart failure; I42.8 Other cardiomyopathies; M19.90 Unspecified osteoarthritis, unspecified site; G47.33 Obstructive sleep apnea (adult) (pediatric); N40.0 Benign prostatic hyperplasia without lower urinary tract symptoms; J45.909 Unspecified asthma, uncomplicated; I89.0 Lymphedema, not elsewhere classified; D69.6 Thrombocytopenia, unspecified; Z96.643 Presence of artificial hip joint, bilateral; E66.9 Obesity, unspecified; Z68.37 Body mass index [BMI] 37.0-37.9, adult; Z95.810 Presence of automatic (implantable) cardiac defibrillator; Z91.14 Patient's other noncompliance with medication regimen; R53.1 Weakness; T46.6X5A Adverse effect of antihyperlipidemic and antiarteriosclerotic drugs, initial encounter
CPT/HCPCS: 36415; 70450; 71045; 73502; 80048; 80053; 81001; 83880; 84484; 85025; 85027; 85055; 85610; 85730; 87426; 93005; 96372; 96374; 97110; 97161; 97165; 97530; 97535; 99285; A9270; C9803; G0378; J1650; U0003; U0005